=== PATIENT | male | born 1940 | race Caucasian/White ===

== ENCOUNTER 2016-07-10 12:24 | Emergency (ER) | payer OTHER ==
--- NOTE | 2016-07-10 12:43 | EDPHY ---
H & P Time Seen by Provider: 07/10/16 12:41 HPI/ROS: CHIEF COMPLAINT: HISTORY OF PRESENT ILLNESS: [Location, Duration, Severity, Quality, Context, Timing Modifying Factors, Associated S&S] REVIEW OF SYSTEMS: A complete 10-point review of systems was performed and is negative except for those items mentioned in the HPI. Past Medical/Surgical History: Asthma. Smoking Status: Never smoked Physical Exam: General Appearance: Alert, no distress Eyes: Pupils equal and round, no conjunctival pallor or injection ENT, Mouth: Mucous membranes moist Neck: Normal inspection Respiratory: Lungs are clear to auscultation Cardiovascular: Regular rate and rhythm Gastrointestinal: Abdomen is soft and non- tender Neurological: A&O, nonfocal, normal gait Skin: Warm and dry, no rash Extremities: Nontender, no pedal edema Psychiatric: Mood and affect normal Constitutional: Initial Vital Signs Temperature (C) 36.6 C 07/10/16 12:33 Heart Rate 142 H 07/10/16 12:33 Respiratory Rate 18 07/10/16 12:33 Blood Pressure 121/93 H 07/10/16 12:33 O2 Sat (%) 94 07/10/16 12:33 O2 Delivery Mode Room Air Allergies/Adverse Reactions: No Known Allergies Allergy (Unverified 07/10/16 12:31) Home Medications: Medication Instructions Recorded Albuterol 5 mg/ml INH 07/10/16 Report Scribed for: Zully Bridges Report Scribed by: Rocael Del Valle Date of Report: 07/10/16 Time of Report: 12:45 Physician Review and Approval Statement: 07/10/16 12:43 Portions of this note were transcribed by a certified medical technician. I personally performed a history, physical exam, medical decision making, and confirmed accuracy of information the transcribed note.
--- NOTE | 2016-07-10 12:47 | CPEKG ---
Heart Rate: 143 RR Interval: 420 P-R Interval: 288 QRSD Interval: 146 QT Interval: 344 QTC Interval: 531 P [place]: 0 QRS [place]: -150 T Wave [place]: 44 EKG Severity - ABNORMAL ECG - EKG Impression: SINUS TACHYCARDIA EKG Impression: FIRST DEGREE AV BLOCK EKG Impression: LEFT ATRIAL ABNORMALITY EKG Impression: RBBB AND LAFB Electronically Signed By: Shanthi Vega 10-Jul-2016 23:12:35
[2016-07-10] MEDS ORDERED: ADENOSINE 6 MG/2 ML VIAL IVP ONE (12:50)
[2016-07-10] MEDS ORDERED: ASPIRIN 81 MG CHEWABLE TAB PO ONE (12:51)
[2016-07-10] MEDS ORDERED: NS 1,000 ML IV ONE (12:51)
[2016-07-10] MEDS ORDERED: ADENOSINE 6 MG/2 ML VIAL ONE (12:54)
[2016-07-10 13:03] LABS: % IMMATURE GRANULYOCYTES 0.1 % (0.0-1.1); ABSOLUTE IMMATURE GRANULOCYTES 0.01 10^3/uL (0.00-0.10); ADD DIFF? NO; ADD MORPH? NO; ADD SCAN? NO; ATYPICAL LYMPHOCYTE FLAG 20 (0-99); FRAGMENT RBC FLAG 0 (0-99); HEMATOCRIT 47.5 % (40.0-51.0); HEMOGLOBIN 16.2 g/dL (13.7-17.5); LEFT SHIFT FLG 0 (0-99); LIPEMIA HEMOLYSIS FLAG 90 (0-99); MEAN CELL HEMOGLOBIN CONCENTR. 34.1 g/dL (32.4-36.7); MEAN CELL VOLUME 85.1 fL (81.5-99.8); MEAN PLATELET VOLUME 9.2 fL (8.7-11.7); PLATELET CLUMPS FLAG 10 (0-99); PLATELET COUNT 458 10^3/uL (150-400); RED BLOOD CELL COUNT 5.58 10^6/uL (4.40-6.38); RED CELL DISTRIBUTION WIDTH 14.8 % (11.5-15.2)
[2016-07-10 13:07] LABS: ANION GAP 15 mEq/L (8-16); CALCIUM 9.7 mg/dL (8.5-10.4); CARBON DIOXIDE 27 mEq/l (22-31); CHLORIDE 95 mEq/L (97-110); CREATININE 0.8 mg/dL (0.7-1.3); GLOMERULAR FILTRATION RATE > 60; GLUCOSE 121 mg/dL (70-100); MAGNESIUM 2.1 mg/dL (1.6-2.3); POTASSIUM 4.6 mEq/L (3.5-5.2); SODIUM 137 mEq/L (134-144)
[2016-07-10] MEDS ORDERED: PROPOFOL 200 MG/20 ML VIAL ONE (13:07)
[2016-07-10] MEDS ORDERED: fentaNYL 100 MCG/2 ML INJ ONE (13:09)
[2016-07-10] MEDS ORDERED: fentaNYL 100 MCG/2 ML INJ IVP ONE (13:10)
[2016-07-10] MEDS ORDERED: PROPOFOL 200 MG/20 ML VIAL IVP ONE (13:10)
[2016-07-10] MEDS ORDERED: DILTIAZEM 25 MG/5 ML VIAL IVP ONE ×2 (13:14→13:15)
[2016-07-10] MEDS ORDERED: DILTIAZEM 125 MG in D5W 125 ML IV ONE (13:15)
[2016-07-10 13:18] LABS: TROPONIN I 0.033 ng/mL (0-0.034)
[2016-07-10] MEDS ORDERED: DILTIAZEM 125 MG in D5W 100 ML IV ONE (13:30)
--- NOTE | 2016-07-10 13:53 | DX ---
Portable Chest July 10, 2016 1325 hours Clinical Indications: Chest pain. Comparison: October 28, 2010. Findings: Frontal view (only) shows clear lungs and no masses. Heart size and pulmonary vessels melchor ear normal. No evidence of pleural effusion. Persistent elevation of the left hemidiaphragm is uncha nged. Impression: Negative frontal chest radiograph.
[2016-07-10] MEDS ORDERED: AZITHROMYCIN 250 MG TAB PO ONE (13:57)
--- NOTE | 2016-07-10 14:19 | EDPHY ---
H & P Stated Complaint: sick for 2 wks, coughing fit yesterday "heart beat went crazy " thumping Time Seen by Provider: 07/10/16 12:41 - Personal History Current Tetanus/Diphtheria Vaccine: Yes Current Tetanus Diphtheria and Acellular Pertussis (TDAP): Yes - Medical/Surgical History Hx Asthma: Yes Hx Chronic Respiratory Disease: No Hx Diabetes: No Hx Cardiac Disease: No Hx Renal Disease: No Hx Cirrhosis: No Hx Alcoholism: No Hx HIV/AIDS: No Hx Splenectomy or Spleen Trauma: No Other PMH: asthma, - Social History Smoking Status: Never smoked Constitutional: Initial Vital Signs Temperature (C) 36.6 C 07/10/16 12:33 Heart Rate 142 H 07/10/16 12:33 Respiratory Rate 18 07/10/16 12:33 Blood Pressure 121/93 H 07/10/16 12:33 O2 Sat (%) 94 07/10/16 12:33 O2 Delivery Mode Nasal Cannula O2 (L/minute) 3 Allergies/Adverse Reactions: No Known Allergies Allergy (Unverified 07/10/16 12:31) Home Medications: Medication Instructions Recorded AZITHROMYCIN [Z-PACK] 250 mg PO DAILY #1 packet 07/10/16 Albuterol 5 mg/ml INH 07/10/16 Diltiazem HCl [Diltiazem 12Hr ER] 60 mg PO BID #30 cap.er.12h 07/10/16 HYDROcodone/HOMATROPINE HYCODA 1 tsp PO Q4-6PRN PRN #120 ml 07/10/16 [Hycodan Syrup (RX)] Medical Decision Making ED Course/Re-evaluation: CHIEF COMPLAINT: Rapid heart rate HISTORY OF PRESENT ILLNESS: 76-year-old healthy gentleman who denies any medical problems or any medicines. He has had an upper respiratory infection for about 2 weeks. He has had severe coughing episodes. During a severe coughing episode yesterday at 10:00 p.m. exactly this patient went into a rapid heart rhythm. Thought it might go away so he slept overnight and then went to urgent care this morning the analyze his heart rhythm and sent him here. He also uses some albuterol intermittently which was given to him for his upper respiratory infection. He denies ever having a rapid rhythm in the past. He denies syncope. He feels a little short of breath. His chest feels funny to him but he denies any pressure or tightness or pain in the chest shoulders arms neck or jaw. REVIEW OF SYSTEMS: A 10 point review of systems was performed and is negative with the exception of the elements mentioned in the history of present illness. PHYSICAL EXAM: HR, BP, O2 Sat, RR. Temp noted General Appearance: Alert, well hydrated, appropriate, and non-toxic appearing. Head: Atraumatic without scalp tenderness or obvious injury Eyes: Pupils equal, round, reactive to light and accommodation, EOMI, no trauma , no injection. Ears: Clear bilaterally, no perforation, normal landmarks Nose: Atraumatic, no rhinorrhea, clear. Throat: There is no erythema or exudates, no lesions, normal tonsils, mucus membranes moist. Neck: Supple, 2+ carotid upstroke, nontender, no lymphadenopathy. Respiratory: No retractions, no distress, no wheezes, and no accessory muscle use. Lungs are clear to auscultation bilaterally. Cardiovascular: Rapid and Regular rate and rhythm, no murmurs, rubs, or gallops. Bilateral carotid, radial, dorsalis pedis, and posterior tibial pulses intact. Good capillary refill all extremities. Gastrointestinal: Abdomen is soft, nontender, non-distended, no masses, no rebound, no guarding, no peritoneal signs. Musculoskeletal: Normal active ROM of all extremities, atraumatic. Neurological: Alert, appropriate, and interactive. The patient has normal DTRs and non-focal cranial nerves, motor, sensory, and cerebellar exam. Skin: No rashes, good turgor, no nodules on palpation. Past medical history: Patient denies Past surgical history: Noncontributory Family history: Noncontributory Social history: , lives at home, does not abuse tobacco drugs or alcohol , retired DIAGNOSTICS/PROCEDURES/CRITICAL CARE TIME: The 12 lead EKG was interpreted by myself. See hard copy and/or "tracemaster" electronic copy for interpretation. The 1st EKG shows a right bundle-branch block pattern and a regular rate of 145-150. The rhythm strip after the adenosine disclosed flutter waves and did not convert the patient. The 1st rhythm strip after 50 joule cardioversion converted the patient to sinus mechanism originally then the patient went back into a flutter pattern. The 2nd rhythm strip after 100 joule cardioversion shows sinus mechanism with no ischemia. Rate of 65. Study: PA and Lateral Chest X-ray Indication: cough x2 week Results: After viewing the images myself on the PACS system. My interpretation of the images is: no acute process. The radiologist interpretation is pending at the time of this dictation. DIFFERENTIAL DIAGNOSIS: The differential diagnosis for the patient's narrow complex tachycardia included but was not limited to various causes of sinus tachycardia such as dehydration and medicines, SVT, atrial flutter, atrial fibrillation, pulmonary causes. MEDICAL DECISION MAKING: This patient is using albuterol in also has an upper respiratory infection. During a coughing event yesterday evening at 10:00 p.m. exactly went into a rapid rhythm. The rhythm lasted all night. I boo labs 1st thing on arrival today and his troponin is normal. There is no evidence of ischemia on EKG or based on troponin. After identifying the fact that the patient had atrial flutter when given adenosine I moved to the [facility]uma [facility] for cardioversion. Procedure: Procedural sedation. Indication: cardioversion. A pre-sedation evaluation was completed on the patient at 1:00 p.m.. The patient has an ASA class 1 airway and modified Mallampati class 1 airway. Patient is an appropriate candidate for procedural sedation. The risks, benefits, alternatives of sedation were discussed with the patient and his . Consent was obtained. The patient was pre-oxygenated with 100% O2 on a [id number] and moved to the procedure room where airway rescue equipment is available. A time out was observed. The patient was sedated with 50 mcg of fentanyl and 80 mg of propofol. The patient was monitored with continuous pulse oximetry, alarm security or surveillance monitor, and end tidal CO2. There were no complications and no hypoxemia. The patient tolerated the procedure well and returned to baseline. I remained at the bedside for the sedation. The total time I spent in the procedural sedation was 15 minutes. Procedure: Electrical Cardioversion. Indication: Atrial flutter. Risks, benefits, alternatives discussed with the patient and consent obtained. The patient was on a continuous manager monitoring, with airway equipment at the bedside. The patient was on continuous pulse oximetry and passive CO2 monitor. The cardioversion was performed with 50 joules biphasic current, followed by 100 joules biphasic current. The cardioversion was successful after the 2nd attempt. The patient tolerated the procedure well with no complications. The procedure was performed by myself. ECHOCARDIOGRAPHY: Indication: new onset atrial flutter Procedure: Limited transthoracic 2D echocardiogram. A limited transthoracic echocardiogram was performed by the echocardiogram technologists and interpreted by Surekha Ring. Limited transthoracic echocardiogram: The pericardium was visualized and found to be negative for pericardial fluid. Cardiac activity and EF was normal. No obvious structural or valve abnormalities. Impression: normal Since this patient was easily converted from atrial flutter and the atrial flutter was most definitely brought on by upper respiratory event I will 1st treat this patient's upper respiratory infection with Zithromax and hydrocodone to suppress his cough. In addition I did give the patient 20 mg of IV diltiazem after the 100 joule cardioversion and his rate is sinus 65. Dr. Surekha Ring is here in the trauma [facility] and has done consultation on the patient in addition to reading the echo. She is in agreement that it is safe for this patient to proceed home at this time he will return if his rhythm becomes rapid again. Will start this patient on 60 mg of extended release diltiazem 1 twice daily until his upper respiratory infection is gone. He will follow up with Dr. Ring or Dr. Martinez who he has seen about 5 years ago in the office on Thursday or Thursday. He will return here if worse. Dr. Ring and I did give the patient the option of stain but he would much prefer to go home he lives close and if he goes into a rapid rhythm again he will come back. This patient has been offered Eliquis by Dr. Ring but the patient would like to hold off now will talk further to Dr. Ring or Dr. Martinez this week. I spent a total of 30 minutes of critical care time including but not limited to obtaining history, performing a physical exam, ordering interventions and the bedside monitoring of those interventions, collecting and interpreting tests and discussion with consultants but not including time spent performing procedures. This is independent of PA or ELECTRONIC GLUING MACHINE OPERATOR time spent with the patient. - Data Points Laboratory Results: Laboratory Results 07/10/16 12:48 07/10/16 12:48 07/10/16 07/10/16 07/10/16 12:58 12:48 12:35 WBC 8.85 10^3/uL (3.80-9.50) RBC 5.58 10^6/uL (4.40-6.38) Hgb 16.2 g/dL (13.7-17.5) Hct 47.5 % (40.0-51.0) MCV 85.1 fL (81.5-99.8) MCH 29.0 pg (27.9-34.1) MCHC 34.1 g/dL (32.4-36.7) RDW 14.8 % (11.5-15.2) Plt Count 458 H 10^3/uL (150-400) MPV 9.2 fL (8.7-11.7) Neut % (Auto) 73.5 % (39.3-74.2) Lymph % (Auto) 19.1 % (15.0-45.0) King % (Auto) 7.0 % (4.5-13.0) Eos % (Auto) 0.1 L % (0.6-7.6) Baso % (Auto) 0.2 L % (0.3-1.7) Nucleat RBC Rel Count 0.0 % (0.0-0.2) Absolute Neuts (auto) 6.50 10^3/uL (1.70-6.50) Absolute Lymphs (auto) 1.69 10^3/uL (1.00-3.00) Absolute Monos (auto) 0.62 10^3/uL (0.30-0.80) Absolute Eos (auto) 0.01 L 10^3/uL (0.03-0.40) Absolute Basos (auto) 0.02 10^3/uL (0.02-0.10) Absolute Nucleated RBC 0.00 10^3/uL (0-0.01) Immature Gran % 0.1 % (0.0-1.1) Immature Gran # 0.01 10^3/uL (0.00-0.10) D-Dimer 0.64 H ug/mLFEU (0.00-0.50) Sodium 137 mEq/L (134-144) Potassium 4.6 mEq/L (3.5-5.2) Chloride 95 L mEq/L (97-110) Carbon Dioxide 27 mEq/l (22-31) Anion Gap 15 mEq/L (8-16) BUN 15 mg/dL (7-23) Creatinine 0.8 mg/dL (0.7-1.3) Estimated GFR > 60 Glucose 121 H mg/dL (70-100) Calcium 9.7 mg/dL (8.5-10.4) Magnesium 2.1 mg/dL (1.6-2.3) Troponin I 0.033 ng/mL (0-0.034) NT-Pro-B Natriuret Pep 1520 H pg/mL (0-125) TSH Pending Medications Given: Discontinued Medications Adenosine (Adenosine) 12 mg IVP EDNOW ONE Stop: 07/10/16 12:51 Last Admin: 07/10/16 12:50 Dose: 12 mg Aspirin (Aspirin) 324 mg PO EDNOW ONE Stop: 07/10/16 12:52 Last Admin: 07/10/16 13:22 Dose: 324 mg Azithromycin (Zithromax) 500 mg PO EDNOW ONE PRN Reason: Protocol Stop: 07/10/16 13:58 Last Admin: 07/10/16 14:25 Dose: 500 mg Diltiazem HCl (Cardizem 25 Mg/5 Ml Vial) 20 mg IVP EDNOW ONE Stop: 07/10/16 13:16 Last Admin: 07/10/16 13:15 Dose: 20 mg Fentanyl (Sublimaze) 50 mcg IVP EDNOW ONE Stop: 07/10/16 13:11 Last Admin: 07/10/16 13:10 Dose: 50 mcg Sodium Chloride (Ns) 1,000 mls @ 0 mls/hr IV ONCE ONE PRN Reason: Wide Open Stop: 07/10/16 12:52 Last Admin: 07/10/16 13:05 Dose: 1,000 mls Propofol (Diprivan) 80 mg IVP EDNOW ONE Stop: 07/10/16 13:11 Last Admin: 07/10/16 13:10 Dose: 80 mg Departure - Departure Disposition: Home, Routine, Self-Care Clinical Impression: Atrial flutter with rapid ventricular response, Bronchitis Condition: Good Instructions: Atrial Flutter (ED), Acute Bronchitis (ED) Referrals: Dave Tse [Primary Care Provider] - As per Instructions Surekha Ring MD [Medical Doctor] - As per Instructions Prescriptions: Diltiazem HCl [Diltiazem 12Hr ER] 60 mg PO BID #30 cap.er.12h HYDROcodone/HOMATROPINE HYCODA [Hycodan Syrup (RX)] 1 tsp PO Q4-6PRN PRN #120 ml PRN Reason: Cough, Moderate AZITHROMYCIN [Z-PACK] 250 mg PO DAILY #1 packet
[2016-07-10 14:28] VITALS: O2SAT 97
--- NOTE | 2016-07-10 14:53 | ECHO ---
[id number] + + [address] : : [place] [address] : : [phone] + + Adult Echocardiographic Report + ----+ :Name: CLARI DIAMOND LStudy Date: 07/10/2016 01:52 PM : : Hospital Admission Number: [id number] Location : ER: :: 1940 Gender: Male Height: 68 in : :Age: 76 yrs Race: WH Weight: 172 lb : :Reason For Study: Eval LV Fx : : BSA: 1.9 meters2 : :History: Post Atrial Flutter Cardioversion : + ----+ MMode/2D Measurements & Calculations IVSd: 0.91 cm LVIDd: 4.9 cm FS: 41.1 % Ao root diam: 3.4 cm LVPWd: 0.93 cm LVIDs: 2.9 cm EDV(Teich): 113.4 ml ACS: 1.6 cm ESV(Teich): 31.9 ml EF(Teich): 71.8 % Normal Measurement Values: + + :LVIDd (3.5-5.7cm) IVSd (0.6-1.1cm) LVPWd (0.6-1.1cm) Aortic Root (2.0-3.7cm)Left Atrium (1.5-4.0cm): :LV Vol(d) (76-115ml) LV Vol(s) (29-48ml) Ejec Fraction (50-65%)PV Alan (0.6- 1.2m/s) TV Alan (0.4-1.0m/s) : :MV E Alan (0.8-1.0m/s)MV A Alan (0.3-1.0m/s)LVOT Alan (0.7-1.2m/s) Asc Ao Alan ( 0.9-1.8m/s) : + + Doppler Measurements & Calculations MV E max alan: Ao V2 max: LV V1 max: PA V2 max: 58.2 cm/sec 113.0 cm/sec 87.9 cm/sec 66.5 cm/sec MV A max alan: Ao max P.1 mmHgLV V1 max PG: PA max P.4 cm/sec 3.1 mmHg 1.8 mmHg MV E/A: 1.4 TR max alan: 246.0 cm/sec TR max P.2 mmHg RAP systole: 5.0 mmHg RVSP(TR): 29.2 mmHg Left Ventricle The left ventricle is normal in size. There is normal left ventricular wall thickness. The left ventricular ejection fraction is normal. There is Doppler evidence for diastolic dysfunction. Ejection Fraction = 72%. The left ventricular wall motion is normal. Right Ventricle The right ventricle is normal in size and function. Atria The left atrial size is normal. Right atrial size is normal. Mitral Valve There is mild mitral annular calcification. There is no evidence of mitral valve prolapse. There is no mitral valve stenosis. There is trace to mild mitral regurgitation. Tricuspid Valve There is mild tricuspid regurgitation. Right ventricular systolic pressure is normal. Aortic Valve Mild Aortic Valve Calcification. The aortic valve is trileaflet. There is no aortic stenosis. Trace aortic regurgitation. Pulmonic Valve trace to mild pulmonic valvular regurgitation. Great Vessels The aortic root is normal size. Pericardium/Pleural There is no pericardial effusion. Conclusion A complete two-dimensional transthoracic echocardiogram was performed (2D, M-mode, Doppler and color flow Doppler). The left ventricular ejection fraction is normal. There is Doppler evidence for diastolic dysfunction. Ejection Fraction = 72%. The left ventricular wall motion is normal. The right ventricle is normal in size and function. The left atrial size is normal. There is mild mitral annular calcification. There is trace to mild mitral regurgitation. There is mild tricuspid regurgitation. Right ventricular systolic pressure is normal. Mild Aortic Valve Calcification There is no aortic stenosis. Trace aortic regurgitation. The aortic valve is trileaflet. trace to mild pulmonic valvular regurgitation. There is no pericardial effusion. No prior echo Final Reading Physician: Dr Surekha Ring electronically signed on 07/10/2016 02:52 PM Ordering Physician: Klever Hamilton Performed By: Landon Da Silva, GRACIELACS
[2016-07-10 15:03] VITALS: BP 103/59; PULSE 73; RESP 20; TEMP 98.1
--- NOTE | 2016-07-10 15:29 | GCON ---
[f rep st] CONSULTATION CARDIOLOGY CONSULT DATE OF CONSULTATION: 07/10/2016 PRIMARY LEATHER CARVER: Dr. Martir Martinez. CHIEF COMPLAINT: Atrial flutter. HISTORY OF PRESENT ILLNESS: We were asked by Dr. Hamilton in the ER to visit with Mr. Duarte. The pat kimberley is a pleasant 76-year-old male with no known cardiovascular history. He does have a history of reactive airways disease. He reports having had an angiogram with Dr. Martinez about 10 years ago with no intervention. I do not have this report. For a couple of weeks, he has been struggling with upper respiratory symptoms, including paroxysmal c ough. Last night, he was coughing very hard; and after his coughing spell was over, he felt that his heart was not beating right. His pulse felt weak and rapid. He felt generally unwell and a little bit lightheaded. There was some associated chest burning and some mild dyspnea. He also used his al buterol over the course of the past couple of days. Because he was not feeling right, he presented to [facility] and was referred to the Kody Rodriguez, when he was found to be in rapid narrow complex tachycardia. In the emergency department, he was found to have a right bundle branch block and SVT. He was given adenosine, which revealed flutter wa ves, and then received 2 synchronized shocks which ultimately converted him to normal rhythm. Upon my evaluation post cardioversion by Dr. Hamilton, he feels much better. Chest burning is gone. REVIEW OF SYSTEMS: A full 10-point review of systems is performed and is otherwise negative except t hat which is outlined in the History of Present Illness. ALLERGIES: No known drug allergies. PAST MEDICAL HISTORY: 1. Reactive airways disease. 2. Cataract surgery. 3. Tonsillectomy as a child. MEDICATIONS: Albuterol inhaler, aspirin 81 mg daily, vitamin C, vitamin B, and multivitamin. SOCIAL HISTORY: The patient is and his is at the bedside. He drinks alcohol in moderat ion. He does not smoke cigarettes. He denies cocaine. FAMILY HISTORY: Negative for premature coronary disease or sudden cardiac . PHYSICAL EXAM: VITAL SIGNS: Blood pressure 90/61, heart rate 69, oxygen saturation 97% on 3 L nasal cannula. He is afebrile. GENERAL: Well-appearing older male in no acute distress. HEENT: Sclera e are clear and free of jaundice. Mucous membranes are moist. Normocephalic, atraumatic. CARDIOVAS CULAR: JVP is less than 10. Carotids equal and 2+ bilaterally without bruit. Regular rate and rhyt hm without murmur, rub, or gallop. LUNGS: Clear to auscultation bilaterally without wheezes, rhonch i, or rales. ABDOMEN: Soft, nontender, and nondistended without bruits, masses, or hepatosplenomega ly. EXTREMITIES: Warm and well perfused without cyanosis, clubbing, or edema. NEURO: Alert and or iented x3 without gross focal neurological deficits. LABORATORY DATA: White count 8.85, hematocrit 47.5, platelets slightly high at 458. D-dimer 0.64. Sodium 137, potassium 4.6, chloride 95, bicarb 27, BUN 15, creatinine 0.8, glucose 121. Troponin is negative. BNP 1520 and TSH is pending. 12-lead EKG, reviewed by me: Initial shows SVT with right bundle branch block. Ventricular rate 143 beats per minute. Left anterior fascicular block. 12-lead EKG post conversion shows sinus rhythm w ith a right bundle branch block. Chest x-ray, reviewed by me, is normal. Echocardiogram, reviewed by me: Normal biventricular size and systolic function. Mild mitral regurg itation. Mild tricuspid regurgitation with normal estimated pulmonary pressures. Normal LV wall mot ion. ASSESSMENT AND PLAN: A 76-year-old male with new onset atrial flutter, likely triggered by his upper respiratory infection and the use of albuterol. He is now in sinus rhythm after adenosine, diltiaze m, and 2 direct current cardioversions. 1. Atrial flutter: Currently in sinus rhythm. I have recommended diltiazem 60 mg twice daily to re duce the risk of recurrent arrhythmia while he is recovering from his upper respiratory infection. D iscussed the risk and benefit of short-term anticoagulation. His CHADS2-VASc score is 1, but he just did have cardioversion and I do recommend 4 weeks of Eliquis. Bleeding risks were reviewed. Possib le side effects of diltiazem were also reviewed. He should follow up in our office with either Dr. Michael kirby or me for discussion about whether he needs to be on long-term anticoagulation as well as an ou tpatient stress test. Follow up on TSH. 2. History of asthma and upper respiratory infection: This appears to be bronchitis. No pneumonia on chest x-ray. Azithromycin per Dr. Hamilton. Thank you for allowing us to participate in Mr. Duarte's care. We will follow up with him as an outpa tient as discussed above. /[id number]/MODL
== END 2016-07-10 15:04 | disposition home or self-care (01) ==
DX: I48.92 Unspecified atrial flutter (principal); J20.9 Acute bronchitis, unspecified; J45.909 Unspecified asthma, uncomplicated
CPT/HCPCS: 96374; J0153; J2704; J3010

== ENCOUNTER 2016-07-13 22:11 | Observation (INO) | payer OTHER ==
--- NOTE | 2016-07-13 22:32 | CPEKG ---
Heart Rate: 128 RR Interval: 469 QRSD Interval: 144 QT Interval: 360 QTC Interval: 526 QRS [place]: 121 T Wave [place]: 7 EKG Severity - ABNORMAL ECG - EKG Impression: ATRIAL FIBRILLATION, V-RATE 89-156 EKG Impression: MULTIFORM VENTRICULAR PREMATURE COMPLEXES EKG Impression: RIGHT BUNDLE BRANCH BLOCK Electronically Signed By: Jean-Pierre Conn 14-Jul-2016 04:14:35
--- NOTE | 2016-07-13 22:33 | EDPHY ---
H & P Stated Complaint: rapid hr for 1 hr dizzy seen last week new onset afib HPI/ROS: HPI CHIEF COMPLAINT: Lightheadedness, fatigue, rapid heart rate HISTORY OF PRESENT ILLNESS: This patient very pleasant 76-year-old male, no significant medical history, presents emergency room with feeling lightheadedness, feeling as if he is going to pass out, fatigue, rapid heart rate. Patient states around 930 this evening he noticed that his heart was racing and beating very fast, tells me that he got very lightheaded he thought that his heart rate was very irregular he went and sat down in a chair to see if this would go away for 20 minutes and took his dose of diltiazem that was recently prescribed Grime. His symptoms continued to he decided come to the emergency room. He denies chest pain, shortness of breath. He was recently here in the emergency room had a cardioversion this was on July 10 he was recently diagnosed with upper respiratory tract infection and was taking albuterol it was thought that his a flutter at that time on July 10 was due to upper respiratory tract infection coughing and albuterol. Patient tells me he has not followed up with a logging assistant. He has been compliant with azithromycin for the upper respiratory tract infection he has been taking diltiazem he is not on any blood thinners. Upon arrival here in emergency room he denies any chest pain he is complaining of lightheadedness, palpitations. It is noted his heart rate is in the 130s to 140 very irregular. He otherwise appears well nontoxic. Past Medical History: Recently diagnosed with a flutter status post cardioversion on July 10 Past Surgical History: denies any significant surgical history Social History: Denies daily use drugs alcohol tobacco products Family History: in noncontributory ROS REVIEW OF SYSTEMS: A comprehensive 10 point review of systems is otherwise negative aside from elements mentioned in the history of present illness. Exam Constitutional triage nursing summary reviewed, vital signs reviewed, awake/ alert. Eyes normal conjunctivae and sclera, EOMI, PERRLA. HENT normal inspection, atraumatic, moist mucus membranes, no epistaxis, neck supple/ no meningismus, no raccoon eyes. Respiratory clear to auscultation bilaterally, normal breath sounds, no respiratory distress, no wheezing. Cardiovascular irregular, irregular rhythm , no murmur, no edema, distal pulses normal. Gastrointestinal soft, non-tender, no rebound, no guarding, normal bowel sounds, no distension, no pulsatile mass. Genitourinary no CVA tenderness. Musculoskeletal no midline vertebral tenderness, full range of motion, no calf swelling, no tenderness of extremities, no meningismus, good pulses, neurovascularly intact. Skin pink, warm, & dry, no rash, skin atraumatic. Neurologic awake, alert and oriented x 3, AAOx3, moves all 4 extremities equally, motor intact, sensory intact, CN II-XII intact, normal cerebellar, normal vision, normal speech. Psychiatric normal mood/affect. Heme/Lymph/Immune no lymphadenopathy. Differential Diagnosis: this includes but is not limited to in a particular order, AFib with RVR, electrolyte abnormality, ACS, dehydration, upper respiratory tract infection, pneumonia Medical Decision Making: This patient had an IV established will receive IV fluid bolus, he will need EKG, chest x-ray, blood work including troponin and electrolytes. He is in AFib I will order him 10 mg IV dilt push not push and dilt gtt. We will re-evaluate. Re-evaluation: EKG interpretation by me on record in [employer] system. Impression time of EKG is 08/25/1929, this is atrial fib rate of 128 there is a right bundle-branch block present. this is similar to his previous EKG dated on 07/10/2016 ED x-ray chest one view: Negative for acute cardiopulmonary disease however there is underlying bronchitis, large left gastric bubble otherwise unremarkable. Image interpreted by myself. EKG interpretation by me on record in [employer] system. Impression time of EKG is 09/22/2016, this is AFib rate of 103, there is right bundle-branch block present. 1225: re-examination at this time this patient is resting comfortably no chest pain. It is noted he is in AFib heart rate is running 90s to low 100s. Patient is on diltiazem drip at 15 mg. Did come down from the 130s however remains in AFib due to him being symptomatic I will admit him to the hospital for observation and for Cardiology to evaluate him. He agrees with this plan. I have consult the hospitalist service at this time. 1231: spoke with the hospitalist service Dr. Naik who agrees for admission. Patient be admitted to the [facility] Source: Patient - Personal History Current Tetanus/Diphtheria Vaccine: Unsure Current Tetanus Diphtheria and Acellular Pertussis (TDAP): Unsure - Medical/Surgical History Hx Asthma: Yes Hx Chronic Respiratory Disease: No Hx Diabetes: No Hx Cardiac Disease: No Hx Renal Disease: No Hx Cirrhosis: No Hx Alcoholism: No Hx HIV/AIDS: No Hx Splenectomy or Spleen Trauma: No Other PMH: asthma, - Social History Smoking Status: Never smoked Constitutional: Initial Vital Signs Temperature (C) 36.7 C 07/13/16 22:17 Heart Rate 104 H 07/13/16 22:17 Respiratory Rate 18 07/13/16 22:17 Blood Pressure 100/74 07/13/16 22:17 O2 Sat (%) 97 07/13/16 22:17 O2 Delivery Mode Room Air Allergies/Adverse Reactions: No Known Allergies Allergy (Unverified 07/10/16 12:31) Home Medications: Medication Instructions Recorded AZITHROMYCIN [Z-PACK] 250 mg PO DAILY #1 packet 07/10/16 Albuterol 5 mg/ml INH 07/10/16 Diltiazem HCl [Diltiazem 12Hr ER] 60 mg PO BID #30 cap.er.12h 07/10/16 Medical Decision Making - Data Points Laboratory Results: Laboratory Results 07/13/16 22:29 07/13/16 22:29 07/13/16 22:29 WBC 8.00 10^3/uL (3.80-9.50) RBC 4.66 10^6/uL (4.40-6.38) Hgb 13.5 L g/dL (13.7-17.5) Hct 39.1 L % (40.0-51.0) MCV 83.9 fL (81.5-99.8) MCH 29.0 pg (27.9-34.1) MCHC 34.5 g/dL (32.4-36.7) RDW 14.6 % (11.5-15.2) Plt Count 426 H 10^3/uL (150-400) MPV 9.2 fL (8.7-11.7) Neut % (Auto) 59.3 % (39.3-74.2) Lymph % (Auto) 29.1 % (15.0-45.0) [place] % (Auto) 9.5 % (4.5-13.0) Eos % (Auto) 1.3 % (0.6-7.6) Baso % (Auto) 0.4 % (0.3-1.7) Nucleat RBC Rel Count 0.0 % (0.0-0.2) Absolute Neuts (auto) 4.75 10^3/uL (1.70-6.50) Absolute Lymphs (auto) 2.33 10^3/uL (1.00-3.00) Absolute Monos (auto) 0.76 10^3/uL (0.30-0.80) Absolute Eos (auto) 0.10 10^3/uL (0.03-0.40) Absolute Basos (auto) 0.03 10^3/uL (0.02-0.10) Absolute Nucleated RBC 0.00 10^3/uL (0-0.01) Immature Gran % 0.4 % (0.0-1.1) Immature Gran # 0.03 10^3/uL (0.00-0.10) PT 13.3 SEC (12.0-15.0) INR 1.02 (0.83-1.16) APTT 28.6 SEC (23.0-38.0) Sodium 140 mEq/L (134-144) Potassium 3.9 mEq/L (3.5-5.2) Chloride 99 mEq/L (97-110) Carbon Dioxide 25 mEq/l (22-31) Anion Gap 16 mEq/L (8-16) BUN 18 mg/dL (7-23) Creatinine 0.9 mg/dL (0.7-1.3) Estimated GFR > 60 Glucose 109 H mg/dL (70-100) Calcium 9.7 mg/dL (8.5-10.4) Magnesium 2.2 mg/dL (1.6-2.3) Total Bilirubin 1.2 mg/dL (0.1-1.4) Conjugated Bilirubin 0.3 mg/dL (0.0-0.5) Unconjugated Bilirubin 0.9 mg/dL (0.0-1.1) AST 69 H IU/L (17-59) ALT 44 IU/L (21-72) Alkaline Phosphatase 74 IU/L (38-126) Creatine Kinase 706 H IU/L (0-224) CK-MB (CK-2) Fraction 5.59 H ng/mL (0-3.19) CK-MB (CK-2) % 0.8 % (0.0-4.0) Creatine Kinase Interp NEGATIVE (NEGATIVE) Troponin I 0.016 ng/mL (0-0.034) NT-Pro-B Natriuret Pep 263 H pg/mL (0-125) Total Protein 7.3 g/dL (6.3-8.2) Albumin 4.1 g/dL (3.5-5.0) Lipase 190.0 IU/L (23-300) Medications Given: Discontinued Medications Diltiazem HCl (Cardizem 25 Mg/5 Ml Vial) 10 mg IVP EDNOW ONE Stop: 07/13/16 22:49 Last Admin: 07/13/16 23:04 Dose: 10 mg Sodium Chloride (Ns) 1,000 mls @ 0 mls/hr IV ONCE ONE PRN Reason: As Directed Stop: 07/13/16 22:36 Last Admin: 07/13/16 22:44 Dose: 1,000 mls Diltiazem HCl 125 mg/ Dextrose 150 mls @ 0 mls/hr IV EDNOW ONE; As Directed PRN Reason: Protocol Stop: 07/13/16 22:49 Last Admin: 07/13/16 23:15 Dose: 150 mls Departure - Departure Disposition: [facility] In[facility] Acute Clinical Impression: Atrial fibrillation Condition: Fair Referrals: Dave Tse [Primary Care Provider] - As per Instructions
[2016-07-13] MEDS ORDERED: NS 1,000 ML IV ONE (22:35)
[2016-07-13] MEDS ORDERED: DILTIAZEM 125 MG in D5W 125 ML IV ONE (22:48)
[2016-07-13] MEDS ORDERED: DILTIAZEM 25 MG/5 ML VIAL IVP ONE (22:48)
[2016-07-13 22:54] LABS: % IMMATURE GRANULYOCYTES 0.4 % (0.0-1.1); ABSOLUTE IMMATURE GRANULOCYTES 0.03 10^3/uL (0.00-0.10); ADD DIFF? NO; ADD MORPH? NO; ADD SCAN? NO; ATYPICAL LYMPHOCYTE FLAG 10 (0-99); FRAGMENT RBC FLAG 0 (0-99); HEMATOCRIT 39.1 % (40.0-51.0); HEMOGLOBIN 13.5 g/dL (13.7-17.5); LEFT SHIFT FLG 0 (0-99); LIPEMIA HEMOLYSIS FLAG 90 (0-99); MEAN CELL HEMOGLOBIN CONCENTR. 34.5 g/dL (32.4-36.7); MEAN CELL VOLUME 83.9 fL (81.5-99.8); MEAN PLATELET VOLUME 9.2 fL (8.7-11.7); PLATELET CLUMPS FLAG 10 (0-99); PLATELET COUNT 426 10^3/uL (150-400); RED BLOOD CELL COUNT 4.66 10^6/uL (4.40-6.38); RED CELL DISTRIBUTION WIDTH 14.6 % (11.5-15.2)
--- NOTE | 2016-07-13 23:05 | DX ---
Portable Chest, Single View July 13, 2016 Indication: Chest pain Comparison: Portable chest dated July 10, 2016 Findings: Lungs are clear with unchanged diffuse mild peribronchial thickening. Asymmetric elevation left hemidiaphragm is unchanged. Heart size is upper normal. No edema, pneumothorax, consolidation or effusion. Impression: Negative except for chronic mild bronchitis.
[2016-07-13 23:09] LABS: APTT 28.6 SEC (23.0-38.0); INR 1.02 (0.83-1.16); PROTIME(PATIENT) 13.3 SEC (12.0-15.0)
[2016-07-13 23:13] LABS: ALANINE AMINOTRANSFERASE 44 IU/L (21-72); ALBUMIN 4.1 g/dL (3.5-5.0); ALKALINE PHOSPHATASE 74 IU/L (38-126); ANION GAP 16 mEq/L (8-16); ASPARTATE AMINOTRANSFERASE 69 IU/L (17-59); BILIRUBIN,TOTAL 1.2 mg/dL (0.1-1.4); BILIRUBIN-CONJUGATED 0.3 mg/dL (0.0-0.5); BILIRUBIN-UNCONJUGATED 0.9 mg/dL (0.0-1.1); CALCIUM 9.7 mg/dL (8.5-10.4); CARBON DIOXIDE 25 mEq/l (22-31); CHLORIDE 99 mEq/L (97-110); CREATININE 0.9 mg/dL (0.7-1.3); GLOMERULAR FILTRATION RATE > 60; GLUCOSE 109 mg/dL (70-100); MAGNESIUM 2.2 mg/dL (1.6-2.3); POTASSIUM 3.9 mEq/L (3.5-5.2); SODIUM 140 mEq/L (134-144); TOTAL PROTEIN 7.3 g/dL (6.3-8.2)
--- NOTE | 2016-07-13 23:18 | CPEKG ---
Heart Rate: 103 RR Interval: 583 QRSD Interval: 148 QT Interval: 396 QTC Interval: 519 QRS [place]: 100 T Wave [place]: 7 EKG Severity - ABNORMAL ECG - EKG Impression: ATRIAL FIBRILLATION EKG Impression: RIGHT BUNDLE BRANCH BLOCK Electronically Signed By: Jean-Pierre Conn 14-Jul-2016 04:14:35
[2016-07-13 23:25] LABS: CK-MB INTERPRETATION NEGATIVE (NEGATIVE); TROPONIN I 0.016 ng/mL (0-0.034)
[2016-07-13 23:26] LABS: CREATINE KINASE-MB FRACTION 5.59 ng/mL (0-3.19)
[2016-07-14] MEDS ORDERED: ASPIRIN EC 325 MG TAB PO ONE (00:26)
[2016-07-14] MEDS ORDERED: ENOXAPARIN 80 MG/0.8 ML SYR SC ONE ×2 (00:26→01:00)
[2016-07-14] MEDS ORDERED: ONDANSETRON 4 MG/2 ML VIAL IVP PRN (00:39)
[2016-07-14] MEDS ORDERED: ACETAMINOPHEN 325 MG TAB PO PRN (00:39)
[2016-07-14] MEDS ORDERED: ONDANSETRON DISINTEGRATING 4 MG TAB PO PRN (00:39)
[2016-07-14] MEDS ORDERED: NS W/ 20 KCl/L 1,000 ML IV SCH (00:45)
[2016-07-14] MEDS ORDERED: guaiFENesin/CODEINE PHOS 10 ML UDCUP PO PRN (01:08)
--- NOTE | 2016-07-14 01:13 | PDGENHP ---
History and Physical - Chief Complaint Acute palpitation - History of Present Illness PCP: Dr. Tse Primary basic acoustic analyst Dr. Martinez HPI: 76-year-old male presents with acute palpitations characterized as heart racing with associated lightheadedness exacerbated with standing and ambulating , onset of symptoms approximately 9:15 p.m. on the day of presentation with persistent duration thereafter. Patient reports that after he received DC cardioversion on 07/10/2016 in our emergency department, he returned home and did not fill his script for oral diltiazem until the day and half later. Prior to filling his script, the patient reports that he just generally felt unwell with increased fatigue exacerbated by exertion. He would check his heart rate, and he reported that it was in the 80s but he is unclear as to whether it was regular or irregular. He then fill his script for diltiazem 60 mg twice daily on 07/12/16 a.m. and he has taken 4 doses of this medication prior to this presentation. He reports that he was not provided with any recommendation for systemic anticoagulation, and he has been taking aspirin 81 mg daily. He has been utilizing as needed codeine/guaifenesin for cough, as well as azithromycin prescribed on 07/10. He has not been using any albuterol. He reports that overall, his cough symptoms have improved. History Information - Allergies/Home Medication List Allergies/Adverse Reactions: No Known Allergies Allergy (Unverified 07/10/16 12:31) Home Medications: Albuterol 5 mg/ml INH 07/10/16 [Last Taken Unknown] I have personally reviewed and updated: family history, medical history, social history, surgical history - Past Medical History asthma (Diagnosis by Dr. Holguin, never intubated) Additional medical history: Atrial flutter diagnosed on 07/10/2016 in the setting of albuterol usage for acute reactive airway exacerbation, received DC cardioversion and no subsequent systemic anticoagulation - Surgical History Additional surgical history: Cataract surgery, tonsillectomy - Family History Additional family history: No family history of coronary artery disease or sudden cardiac - Social History Smoking Status: Never smoked Alcohol Use: Occasionally Drug Use: None Additional social history: Normally independent in his ADLs, physically active Review of Systems ROS: 10pt was reviewed & negative except for what was stated in HPI & below Constitutional: Reports: other (Fatigue) Cardiac: Reports: lightheadedness, palpitations Physical Exam Temp Pulse Resp BP Pulse Ox 36.7 C 88 16 108/82 H 95 07/13/16 22:17 07/14/16 01:03 07/14/16 01:03 07/14/16 01:03 07/14/16 01:03 Constitutional: no apparent distress, appears nourished, not in pain Eyes: anicteric sclera, EOMI, other (Right pupil greater in diameter than left pupil, chronic) Ears, Nose, Mouth, Throat: moist mucous membranes, hearing normal, ears appear normal, no oral mucosal ulcers Cardiovascular: irregularly irregular, tachycardia, No systolic murmur, No edema Respiratory: no respiratory distress, no rales or rhonchi, clear to auscultation , No expiratory wheeze, No bronchial breath sounds Gastrointestinal: normoactive bowel sounds, soft, non-tender abdomen, no palpable masses Skin: warm, normal color, no rashes or abrasions, no fluctuance, no induration, No mottled Neurologic: AAOx3, sensation intact bilaterally, CN II-XII Intact, No weakness Psychiatric: interacting appropriately, not anxious, not encephalopathic, thought process linear Lab Data & Imaging Review 07/13/16 22:29 07/13/16 22: WBC 8.00 10^3/uL (3.80-9.50) 07/13/16 22: RBC 4.66 10^6/uL (4.40-6.38) 07/13/16 22:29 Hgb 13.5 g/dL (13.7-17.5) L 07/13/16 22: Hct 39.1 % (40.0-51.0) L 07/13/16 22:29 MCV 83.9 fL (81.5-99.8) 07/13/16 22: MCH 29.0 pg (27.9-34.1) 07/13/16 22: MCHC 34.5 g/dL (32.4-36.7) 07/13/16 22: RDW 14.6 % (11.5-15.2) 07/13/16 22: Plt Count 426 10^3/uL (150-400) H 07/13/16 22: MPV 9.2 fL (8.7-11.7) 07/13/16: Neut % (Auto) 59.3 % (39.3-74.2) 07/13/16: Lymph % (Auto) 29.1 % (15.0-45.0) 07/13/16: [place] % (Auto) 9.5 % (4.5-13.0) 07/13/16: Eos % (Auto) 1.3 % (0.6-7.6) 07/13/16: Baso % (Auto) 0.4 % (0.3-1.7) 07/13/16: Nucleat RBC Rel Count 0.0 % (0.0-0.2) 07/13/16: Absolute Neuts (auto) 4.75 10^3/uL (1.70-6.50) 07/13/16: Absolute Lymphs (auto) 2.33 10^3/uL (1.00-3.00) 07/13/16: Absolute Monos (auto) 0.76 10^3/uL (0.30-0.80) 07/13/16: Absolute Eos (auto) 0.10 10^3/uL (0.03-0.40) 07/13/16: Absolute Basos (auto) 0.03 10^3/uL (0.02-0.10) 07/13/16: Absolute Nucleated RBC 0.00 10^3/uL (0-0.01) 07/13/16: Immature Gran % 0.4 % (0.0-1.1) 07/13/16: Immature Gran # 0.03 10^3/uL (0.00-0.10) 07/13/16: PT 13.3 SEC (12.0-15.0) 07/13/16: INR 1.02 (0.83-1.16) 07/13/16: APTT 28.6 SEC (23.0-38.0) 07/13/16 22: Sodium 140 mEq/L (134-144) 07/13/16 22: Potassium 3.9 mEq/L (3.5-5.2) 07/13/16 22:29 Chloride 99 mEq/L (97-110) 07/13/16 22:29 Carbon Dioxide 25 mEq/l (22-31) 07/13/16 22: Anion Gap 16 mEq/L (8-16) 07/13/16 22:29 BUN 18 mg/dL (7-23) 07/13/16 22:29 Creatinine 0.9 mg/dL (0.7-1.3) 07/13/16 22: Estimated GFR > 60 07/13/16 22:29 Glucose 109 mg/dL (70-100) H 07/13/16 22:29 Calcium 9.7 mg/dL (8.5-10.4) 07/13/16: Magnesium 2.2 mg/dL (1.6-2.3) 07/13/16 22: Total Bilirubin 1.2 mg/dL (0.1-1.4) 07/13/16 22: Conjugated Bilirubin 0.3 mg/dL (0.0-0.5) 07/13/16: Unconjugated Bilirubin 0.9 mg/dL (0.0-1.1) 07/13/16 22:29 AST 69 IU/L (17-59) H 07/13/16 22: ALT 44 IU/L (21-72) 07/13/16 22: Alkaline Phosphatase 74 IU/L (38-126) 07/13/16 22: Creatine Kinase 706 IU/L (0-224) H 07/13/16 22: CK-MB (CK-2) Fraction 5.59 ng/mL (0-3.19) H 07/13/16 22:29 CK-MB (CK-2) % 0.8 % (0.0-4.0) 07/13/16: Creatine Kinase Interp NEGATIVE (NEGATIVE) 07/13/16: Troponin I 0.016 ng/mL (0-0.034) 07/13/16 22: NT-Pro-B Natriuret Pep 263 pg/mL (0-125) H 07/13/16 22: Total Protein 7.3 g/dL (6.3-8.2) 07/13/16: Albumin 4.1 g/dL (3.5-5.0) 07/13/16 22:29 Lipase 190.0 IU/L (23-300) 07/13/16 22:29 Visualized and Interpreted Chest x-ray results: Yes Chest X-Ray results: other (Diffuse peribronchial thickening, mild) Visualized and Interpreted EKG results: Yes EKG Interpretation: Positive for: other (Atrial fibrillation), right bundle branch block Assessment & Plan Assessment: 76-year-old male presents with paroxysmal atrial fibrillation with acute rapid ventricular response Plan: 1. Atrial fibrillation, paroxysmal. Acute rapid ventricular response, symptomatic, unclear whether patient has been in a normal sinus mechanism for the past 3 days versus experiencing symptomatic rate controlled AFib resulting in generalized fatigue and reduced exercise tolerance. -will get Cardiology consultation this a.m. and make NPO for consideration of ANEGL/DC cardioversion -discussed with Dr. Conn in the emergency department, he has informed me that the patient has received 80 mg of Lovenox, I will continue Lovenox twice daily given the patient may undergo angel with DC cardioversion -the patient has not been taking systemic anticoagulation since his most recent DC cardioversion -patient has been marginally adherent to his home dosage of diltiazem 60 mg twice daily -this dosage may not be frequent enough for the patient or it may be too low -he has responded favorably to IV diltiazem and a diltiazem drip initiated in the emergency department, current heart rate is between 80 and 105 -will initiate 30 mg of oral diltiazem at this time and then does suggest him to 45 mg q.6 hours beginning at 6:00 a.m. -if he responds favorably to this dosage without symptomatic fatigue or bradycardia, then he can be transitioned to an oral once daily equivalent of 180 mg -if he chemically cardioverts he will not require DC cardioversion and regular diet can be ordered 2. URI. Nearly resolved, guaifenesin/codeine for as needed cough Diet. NPO presently Code. Full, is MPOA. Prophylaxis. High risk patient, on therapeutic Lovenox Disposition. Anticipated discharge is either 07/14/2016 versus 07/15/2016, pending stabilization of heart rate and rhythm as well as Cardiology consultation and plan moving forward.
[2016-07-14] MEDS ORDERED: DILTIAZEM 30 MG TAB PO ONE (01:20)
[2016-07-14] MEDS ORDERED: DILTIAZEM 30 MG TAB PO SCH ×2 (01:30→06:00)
[2016-07-14 03:37] VITALS: O2SAT 96
[2016-07-14 04:44] LABS: % IMMATURE GRANULYOCYTES 0.3 % (0.0-1.1); ABSOLUTE IMMATURE GRANULOCYTES 0.02 10^3/uL (0.00-0.10); ADD DIFF? NO; ADD MORPH? NO; ADD SCAN? NO; ATYPICAL LYMPHOCYTE FLAG 20 (0-99); FRAGMENT RBC FLAG 0 (0-99); HEMATOCRIT 35.4 % (40.0-51.0); HEMOGLOBIN 11.9 g/dL (13.7-17.5); LEFT SHIFT FLG 0 (0-99); LIPEMIA HEMOLYSIS FLAG 80 (0-99); MEAN CELL HEMOGLOBIN 28.5 pg (27.9-34.1); MEAN CELL HEMOGLOBIN CONCENTR. 33.6 g/dL (32.4-36.7); MEAN CELL VOLUME 84.9 fL (81.5-99.8); MEAN PLATELET VOLUME 9.2 fL (8.7-11.7); PLATELET CLUMPS FLAG 0 (0-99); PLATELET COUNT 371 10^3/uL (150-400); RED BLOOD CELL COUNT 4.17 10^6/uL (4.40-6.38); RED CELL DISTRIBUTION WIDTH 14.6 % (11.5-15.2)
[2016-07-14 05:09] LABS: ANION GAP 9 mEq/L (8-16); CALCIUM 8.5 mg/dL (8.5-10.4); CARBON DIOXIDE 25 mEq/l (22-31); CHLORIDE 104 mEq/L (97-110); CREATININE 0.7 mg/dL (0.7-1.3); GLOMERULAR FILTRATION RATE > 60; GLUCOSE 105 mg/dL (70-100); POTASSIUM 4.3 mEq/L (3.5-5.2); SODIUM 138 mEq/L (134-144)
[2016-07-14 05:18] LABS: TROPONIN I < 0.012 ng/mL (0-0.034)
[2016-07-14] MEDS ORDERED: ENOXAPARIN 80 MG/0.8 ML SYR SC SCH (09:00)
[2016-07-14] MEDS ORDERED: DILTIAZEM CD 120 MG CAP PO SCH (09:00)
--- NOTE | 2016-07-14 10:28 | HOSPPROG ---
Hospitalist Progress Note Assessment/Plan: * paroxysmal atrial fibrillation * in sinus * was cardioverted a few days ago * had been on diltiazem for a couple days prior to this episode * would probably keep another night to make sure he does not go back into it but will discuss with Cardiology * will switch Lovenox to Eliquis Subjective: in sinus rhythm. No new complaints Objective: Vital Signs Temp Pulse Resp BP Pulse Ox 36.4 C 70 16 128/63 H 96 07/14/16 08:00 07/14/16 08:00 07/14/16 08:00 07/14/16 08:00 07/14/16 08:00 Laboratory Results 07/14/16 04:20 07/14/16 04:20 07/13/16 07/14/16 07/15/16 05:59 05:59 05:59 Intake Total 1495 Balance 1495 PT 13.3 SEC (12.0-15.0) 07/13/16 22:29 INR 1.02 (0.83-1.16) 07/13/16 22:29 discussed with Cardiology tele personally viewed interpreted - normal sinus rhythm - Physical Exam Constitutional: no apparent distress, appears nourished, not in pain Eyes: anicteric sclera, EOMI Ears, Nose, Mouth, Throat: moist mucous membranes, hearing normal, ears appear normal Cardiovascular: regular rate and rhythym, no murmur, rub, or gallop Respiratory: no respiratory distress, no rales or rhonchi, clear to auscultation Gastrointestinal: normoactive bowel sounds, soft, non-tender abdomen, no palpable masses Neurologic: AAOx3 Psychiatric: interacting appropriately, not anxious, not encephalopathic, thought process linear ICD10 Worksheet Patient Problems: Problems Problem Status Diagnosed Atrial fibrillation Acute
[2016-07-14] MEDS ORDERED: ALBUTEROL 60 PUFFS/8 GM MDI IH PRN (10:29)
[2016-07-14 11:20] VITALS: BP 118/73; PULSE 60; RESP 12; TEMP 97.9
--- NOTE | 2016-07-14 15:58 | PDCARPN ---
Cardiology Progress Note Chief Complaint: palpitations Assessment/Plan: Assessment: The patient is a 76 y/o M who presented to [facility] ER on 07/10 with new onset SVT. He was given Adenosine which slowed his rates and showed flutter waves. He was then CV x2 and converted to NSR. His palpitations started in the setting of a coughing fit and he was started on ABX for bronchitis at that time. He was also started on Diltiazem 60mg BID but did not start the medication until Sat morning. Last night the palpitations returned with associated mild lightheadedness. He is very anxious about his heart and therefore presented back to the ER. He was given IV Diltiazem and cardioverted to NSR this morning. Plan: 1. PAF and PAFL- Currently in NSR. He is very anxious about his heart. I spent 45 minutes counseling the patient on atrial fibrillation and treatment options. He was initially diagnosed in the setting of bronchitis which is still being treated. His arrhythmia was likely exacerbated by his URI. He will be d/c home on Cardizem 120mg daily and he can take a additional 60mg for breakthrough events. His CHADS VASc is 1 but he was CV and therefore will need to be on Eliquis 5mg BID for 4 weeks. Also, I would recommend he be screened for MARIN as a outpatient. Follow up with Cardiology in 1-2 weeks. 07/14/16 15:58 Subjective: currently symptoms free. Reviewed/Discussed With: hospitalist Objective: Vital Signs (8 Hrs) Temp Pulse Resp BP Pulse Ox 07/14/16 11:15 36.6 C 60 12 118/73 96 07/14/16 08:00 36.4 C 70 16 128/63 H 96 Intake/Output (24 Hrs) 07/13/16 07/14/16 07/15/16 05:59 05:59 05:59 Intake Total 1495 Balance 1495 Intake: IV Infused (ml) 1495 Diltiazem 125 mg In D5w 10 125 ml @ As Directed IV EDNOW ONE Rx#:[id number] NS W/ 20 KCl/L 1,000 ml @ 485 100 mls/hr IV CONT MATA Rx#:[id number] Other: Weight 75.9 kg Number of Voids Toilet 3 Result Diagrams: 07/14/16 04:20 07/14/16 04:20 Cardiac Labs: Cardiac Lab Results (72 Hrs) 07/14/16 04:20 Troponin I < 0.012 EKG: NSR Telemetry: NSR - Physical Exam Constitutional: WDWN Cardiovascular: regular rate and rhythm, no murmurs, no rubs, no gallops Respiratory: clear to auscultate bilat Skin: no edema ICD10 Worksheet Patient Problems: Problems Problem Status Diagnosed Atrial fibrillation Acute
[2016-07-14] MEDS ORDERED: APIXABAN 5 MG TAB PO SCH (21:00)
--- NOTE | 2016-07-15 18:19 | GDS ---
[f rep st] DISCHARGE SUMMARY DISCHARGE DIAGNOSIS: Paroxysmal atrial fibrillation. HISTORY: This is a 76-year-old male, who had an episode of SVT/atrial fibrillation a few days ago pr ior and was cardioverted in the emergency department. He returned with palpitations and atrial fibri llation. HOSPITAL COURSE: Patient was admitted and essentially converted overnight. Cardiology was consulted . They recommended long-acting diltiazem, as well as continue the Effient. He was offered to stay o vernight, but felt like he would be okay going home. DISPOSITION: Home. DISCHARGE MEDICATIONS: He is to continue aspirin 81 mg daily and start diltiazem 100 mg daily with 6 0 mg as needed for atrial fibrillation. He also will continue on Eliquis. /[id number]/MODL
== END 2016-07-14 17:53 | disposition home or self-care (01) ==
LOC: INTOOBSV 07-14 00:30 → F2W 07-14 01:15
PROVIDERS: ADMIT Internal Medicine; ATTEND Internal Medicine
DX: I48.0 Paroxysmal atrial fibrillation (principal); J06.9 Acute upper respiratory infection, unspecified
CPT/HCPCS: 71010; 93005; G0378; 96374; J1650

== ENCOUNTER 2016-07-25 20:13 | Observation (INO) | payer OTHER ==
--- NOTE | 2016-07-25 20:34 | EDPHY ---
H & P Stated Complaint: FEEL LIKE BACK IN A-FIB Time Seen by Provider: 07/25/16 20:34 - Personal History Current Tetanus/Diphtheria Vaccine: Yes Current Tetanus Diphtheria and Acellular Pertussis (TDAP): Yes - Medical/Surgical History Hx Asthma: Yes Hx Chronic Respiratory Disease: No Hx Diabetes: No Hx Cardiac Disease: Yes Hx Renal Disease: No Hx Cirrhosis: No Hx Alcoholism: No Hx HIV/AIDS: No Hx Splenectomy or Spleen Trauma: No Other PMH: asthma, AFIB. - Social History Smoking Status: Never smoked Constitutional: Initial Vital Signs Temperature (C) 36.9 C 07/25/16 20:19 Heart Rate 132 H 07/25/16 20:19 Respiratory Rate 18 07/25/16 20:19 Blood Pressure 130/93 H 07/25/16 20:19 O2 Sat (%) 96 07/25/16 20:19 O2 Delivery Mode [Post Room Air Procedure 3rd] O2 Delivery Mode [Post Nasal Cannula Procedure 1st] O2 Delivery Mode [Procedural Nasal Cannula 5th] O2 Delivery Mode [Procedural Non-Rebreather Mask 4th] O2 Delivery Mode [Procedural Non-Rebreather Mask 2nd] O2 Delivery Mode [Procedural Non-Rebreather Mask 1st] O2 Delivery Mode [.Immediate Non-Rebreather Mask Pre-Procedure] O2 Delivery Mode Room Air O2 (L/minute) [Post Procedure 2 2nd] O2 (L/minute) [Post Procedure 2 1st] O2 (L/minute) [Procedural 5th] 2 O2 (L/minute) [Procedural 4th] 15 O2 (L/minute) [Procedural 3rd] 15 O2 (L/minute) [Procedural 2nd] 15 O2 (L/minute) [Procedural 1st] 15 O2 (L/minute) [.Immediate Pre- 15 Procedure] Allergies/Adverse Reactions: No Known Allergies Allergy (Unverified 07/25/16 20:21) Home Medications: Medication Instructions Recorded AZITHROMYCIN [Z-PACK] 250 mg PO DAILY #1 packet 07/10/16 Albuterol [Proventil Inhaler HFA 1 - 2 puffs IH DAILY PRN 07/10/16 (*)] Apixaban [Eliquis] 5 mg PO BID #60 tab 07/14/16 Ascorbic Acid [Vitamin C 500 mg 500 mg PO DAILY 07/14/16 (*)] Aspirin [Aspirin 81mg (*)] 81 mg PO DAILY 07/14/16 Cyanocobalamin [Vitamin B12 (*)] 100 mcg PO DAILY 07/14/16 Diltiazem Cd [Cardizem ER 120 MG 120 mg PO DAILY #30 cap 07/14/16 (*)] Diltiazem HCl [Diltiazem 12Hr ER] 60 mg PO PRN PRN #0 cap.er.12h 07/14/16 Herbals/Supplements -Info Only 1 ea PO DAILY 07/14/16 Multivitamins [Multivitamin (*)] 1 each PO DAILY 07/14/16 Vardenafil HCl [Staxyn] 10 mg PO DAILY PRN 07/14/16 Medical Decision Making ED Course/Re-evaluation: CHIEF COMPLAINT: Rapid heart rate HISTORY OF PRESENT ILLNESS: The patient is a 76 y/o male, with a history of atrial fibrillation and atrial flutter, arriving with his complaining of rapid heart rate shortly after waking this morning. He was cardioverted in the ED on 07/10/16 for atrial flutter and was admitted on 07/13/16, about 2 weeks ago, for paroxysmal atrial fibrillation. He is compliant with his medications including his Diltazem and Eliquis. He took an additional dose of 60mg Diltazem at 17:00 tonight to treat his symptoms without improvement. He called his commercial portfolio manager and they recommended coming into the ED tonight for evaluation. He is scheduled to see his commercial portfolio manager on 07/31, 6 days from now. REVIEW OF SYSTEMS: A 10 point review of systems was performed and is negative with the exception of the elements mentioned in the history of present illness. PHYSICAL EXAM: HR, BP, O2 Sat, RR. Temp noted General Appearance: Alert, well hydrated, appropriate, and non-toxic appearing. Head: Atraumatic without scalp tenderness or obvious injury Eyes: Pupils equal, round, reactive to light and accommodation, EOMI, no trauma , no injection. Ears: Clear bilaterally, no perforation, normal landmarks Nose: Atraumatic, no rhinorrhea, clear. Throat: There is no erythema or exudates, no lesions, normal tonsils, mucus membranes moist. Neck: Supple, 2+ carotid upstroke, nontender, no lymphadenopathy. Respiratory: No retractions, no distress, no wheezes, and no accessory muscle use. Lungs are clear to auscultation bilaterally. Cardiovascular: Regular rate and rhythm, no murmurs, rubs, or gallops. Bilateral carotid, radial, dorsalis pedis, and posterior tibial pulses intact. Good capillary refill all extremities. Gastrointestinal: Abdomen is soft, nontender, non-distended, no masses, no rebound, no guarding, no peritoneal signs. Musculoskeletal: Normal active ROM of all extremities, atraumatic. Neurological: Alert, appropriate, and interactive. The patient has normal DTRs and non-focal cranial nerves, motor, sensory, and cerebellar exam. Skin: No rashes, good turgor, no nodules on palpation. Past medical history: Atrial fibrillation and atrial flutter - Diltazem, Eliquis , aspirin; asthma Past surgical history: Cataract surgery, tonsillectomy Family history: noncontributory Social history: at bedside Prior medical records reviewed including ED visit on 07/10/16 and admission on 07/13 for atrial fibrillation. DIAGNOSTICS/PROCEDURES/CRITICAL CARE TIME: The 12 lead EKG was interpreted by myself. Likely atrial flutter in the 130s based on previous presentation, RBBB, LPFB. See hard copy and/or "tracemaster" electronic copy for interpretation. Procedure: Conscious sedation. Indication: Cardioversion The patient is an appropriate candidate to tolerate procedural sedation. The patient's vitals signs and mental status are appropriate. The risks, benefits and alternatives of the sedation were discussed with the patient. The patient is ASA classification 1. The patient's Mallampati airway score was 1 and the patient did meet the 3-3-2 airway measurements. A time out was completed. The patient was sedated with 50mcg IV Fentanyl and 80mg IV propofol. The patient was monitored with continuous pulse oximetry, case monitor and end tidal CO2. There were no complications and no significant hypoxemia. I performed both the sedation and the procedure. The total time I spent at the bedside during the procedural sedation was 15 minutes. The patient was examined after the procedural sedation and has returned to their pre-sedation baseline with normal vital signs and a normal examination. 2140: Procedure: Electrical Cardioversion. Indication: Dysrhythmia. Risks, benefits, alternatives discussed with the patient and consent obtained. The patient was on a continuous case monitor, with airway equipment at the bedside. The patient was on continuous pulse oximetry and passive CO2 monitor. The cardioversion was performed with 100 joules biphasic current. The cardioversion was initially successful and brought rate into the 60s, however he returned to rapid rate in the 140s. Second shock of 100 joules biphasic current applied. The patient tolerated the procedure well with no complications. The procedure was performed by myself. I spent a total of 30 minutes of critical care time including but not limited to obtaining history, performing a physical exam, ordering interventions and the bedside monitoring of those interventions, collecting and interpreting tests and discussion with consultants but not including time spent performing procedures. DIFFERENTIAL DIAGNOSIS: The differential diagnosis for the patient's palpitations included but was not limited to atrial fibrillation, atrial flutter , SVT, myocardial ischemia, pulmonary embolus, chest wall pain, pleural inflammation, and pulmonary infectious causes. MEDICAL DECISION MAKING: This is a 76 y/o male with recent diagnosis of atrial flutter/atrial fibrillation that has been in the ED twice in the past two weeks returning tonight with a rapid heart rate. EKG shows likely atrial flutter similar to previous visit. Plan for IV, labs, and conscious sedation with cardioversion. 2134: Patient sedated and cardioverted twice at 100 joules. Rate reduced initially to sinus rhythm in 60s, then returned to 140s. Second shock reduced rate to 100s but it is now irregular with several flutter waves present. 10mg IV Diltiazem administered. Plan to call motor vehicles supervisor for consult. His BNP is elevated. Troponin is normal. 2154: Consulted with Dr. Ring, commercial portfolio manager. She is happy to admit him or will personally see him on Thursday in her office. Reassessed patient and discussed these options. His BP has dropped into the 80-90s systolic. Bolus of IV NS administered. 2246: Have been unable to maintain pressure much above 100/80 and it drops into the 80s systolic while standing. At this point I think it is best to admit patient. Discussed this with Dr. Ring, who agrees. 2254: Spoke with Dr. Mittal, hospitalist. She accepts admission. - Data Points Laboratory Results: Laboratory Results 07/25/16 20:35 07/25/16 20:35 07/25/16 20:35 WBC 8.08 10^3/uL (3.80-9.50) RBC 5.13 10^6/uL (4.40-6.38) Hgb 14.8 g/dL (13.7-17.5) Hct 43.3 % (40.0-51.0) MCV 84.4 fL (81.5-99.8) MCH 28.8 pg (27.9-34.1) MCHC 34.2 g/dL (32.4-36.7) RDW 14.6 % (11.5-15.2) Plt Count 420 H 10^3/uL (150-400) MPV 9.6 fL (8.7-11.7) Neut % (Auto) 74.7 H % (39.3-74.2) Lymph % (Auto) 18.7 % (15.0-45.0) [place] % (Auto) 5.9 % (4.5-13.0) Eos % (Auto) 0.1 L % (0.6-7.6) Baso % (Auto) 0.2 L % (0.3-1.7) Nucleat RBC Rel Count 0.0 % (0.0-0.2) Absolute Neuts (auto) 6.03 10^3/uL (1.70-6.50) Absolute Lymphs (auto) 1.51 10^3/uL (1.00-3.00) Absolute Monos (auto) 0.48 10^3/uL (0.30-0.80) Absolute Eos (auto) 0.01 L 10^3/uL (0.03-0.40) Absolute Basos (auto) 0.02 10^3/uL (0.02-0.10) Absolute Nucleated RBC 0.00 10^3/uL (0-0.01) Immature Gran % 0.4 % (0.0-1.1) Immature Gran # 0.03 10^3/uL (0.00-0.10) PT 15.4 H SEC (12.0-15.0) INR 1.22 H (0.83-1.16) APTT 34.9 SEC (23.0-38.0) D-Dimer < 0.27 ug/mLFEU (0.00-0.50) Sodium 135 mEq/L (134-144) Potassium 4.2 mEq/L (3.5-5.2) Chloride 99 mEq/L (97-110) Carbon Dioxide 25 mEq/l (22-31) Anion Gap 11 mEq/L (8-16) BUN 11 mg/dL (7-23) Creatinine 0.8 mg/dL (0.7-1.3) Estimated GFR > 60 Glucose 106 H mg/dL (70-100) Calcium 9.8 mg/dL (8.5-10.4) Magnesium 2.0 mg/dL (1.6-2.3) Troponin I 0.024 ng/mL (0-0.034) NT-Pro-B Natriuret Pep 1160 H pg/mL (0-125) Medications Given: Discontinued Medications Diltiazem HCl (Cardizem 25 Mg/5 Ml Vial) 10 mg IVP EDNOW ONE Stop: 07/25/16 21:52 Last Admin: 07/25/16 21:45 Dose: 10 mg Departure - Departure Disposition: [facility] Inpatient Acute Clinical Impression: Atrial flutter Qualifiers: Atrial flutter type: atypical Qualifier Code: (I48.4) Atypical atrial flutter Hypotension Qualifiers: Hypotension type: hypotension due to drug Qualifier Code: (I95.2) Hypotension due to drugs Condition: Good Report Scribed for: Klever Hamilton Report Scribed by: Kayleigh Arita Date of Report: 07/25/16 Time of Report: 20:56
--- NOTE | 2016-07-25 20:35 | CPEKG ---
Heart Rate: 134 RR Interval: 448 P-R Interval: 88 QRSD Interval: 138 QT Interval: 344 QTC Interval: 514 P [place]: 0 QRS [place]: 181 T Wave [place]: 20 EKG Severity - ABNORMAL ECG - EKG Impression: SINUS TACHYCARDIA EKG Impression: RBBB AND LPFB Electronically Signed By: Klever Hamilton 25-Jul-2016 22:51:43
[2016-07-25 21:03] LABS: % IMMATURE GRANULYOCYTES 0.4 % (0.0-1.1); ABSOLUTE IMMATURE GRANULOCYTES 0.03 10^3/uL (0.00-0.10); ADD DIFF? NO; ADD MORPH? NO; ADD SCAN? NO; ATYPICAL LYMPHOCYTE FLAG 0 (0-99); FRAGMENT RBC FLAG 0 (0-99); HEMATOCRIT 43.3 % (40.0-51.0); HEMOGLOBIN 14.8 g/dL (13.7-17.5); LEFT SHIFT FLG 0 (0-99); LIPEMIA HEMOLYSIS FLAG 90 (0-99); MEAN CELL HEMOGLOBIN 28.8 pg (27.9-34.1); MEAN CELL HEMOGLOBIN CONCENTR. 34.2 g/dL (32.4-36.7); MEAN CELL VOLUME 84.4 fL (81.5-99.8); MEAN PLATELET VOLUME 9.6 fL (8.7-11.7); PLATELET CLUMPS FLAG 0 (0-99); PLATELET COUNT 420 10^3/uL (150-400); RED BLOOD CELL COUNT 5.13 10^6/uL (4.40-6.38); RED CELL DISTRIBUTION WIDTH 14.6 % (11.5-15.2)
[2016-07-25 21:06] LABS: ANION GAP 11 mEq/L (8-16); CALCIUM 9.8 mg/dL (8.5-10.4); CARBON DIOXIDE 25 mEq/l (22-31); CHLORIDE 99 mEq/L (97-110); CREATININE 0.8 mg/dL (0.7-1.3); GLOMERULAR FILTRATION RATE > 60; GLUCOSE 106 mg/dL (70-100); POTASSIUM 4.2 mEq/L (3.5-5.2); SODIUM 135 mEq/L (134-144)
[2016-07-25 21:13] LABS: INR 1.22 (0.83-1.16); PROTIME(PATIENT) 15.4 SEC (12.0-15.0)
[2016-07-25 21:14] LABS: APTT 34.9 SEC (23.0-38.0)
[2016-07-25 21:17] LABS: TROPONIN I 0.024 ng/mL (0-0.034)
[2016-07-25] MEDS ORDERED: fentaNYL 100 MCG/2 ML INJ ONE (21:18)
[2016-07-25] MEDS ORDERED: PROPOFOL 200 MG/20 ML VIAL ONE (21:18)
[2016-07-25] MEDS ORDERED: DILTIAZEM 25 MG/5 ML VIAL IVP ONE ×2 (21:45→21:51)
--- NOTE | 2016-07-25 22:26 | CPEKG ---
Heart Rate: 60 RR Interval: 1000 QRSD Interval: 144 QT Interval: 412 QTC Interval: 412 QRS [place]: 89 T Wave [place]: -39 EKG Severity - ABNORMAL ECG - EKG Impression: ATRIAL FIBRILLATION, V-RATE 39-84 EKG Impression: RIGHT BUNDLE BRANCH BLOCK Electronically Signed By: Klever Hamilton 25-Jul-2016 22:51:43
[2016-07-25] MEDS ORDERED: ONDANSETRON DISINTEGRATING 4 MG TAB PO PRN (22:53)
[2016-07-25] MEDS ORDERED: ONDANSETRON 4 MG/2 ML VIAL IVP PRN (22:53)
[2016-07-25] MEDS ORDERED: ACETAMINOPHEN 325 MG TAB PO PRN (22:53)
[2016-07-25] MEDS ORDERED: NS 1,000 ML IV SCH (23:00)
--- NOTE | 2016-07-26 01:11 | GHP ---
[f rep st] HISTORY AND PHYSICAL DATE OF ADMISSION: 07/25/2016 CHIEF COMPLAINT: Palpitations and dizziness. HISTORY OF PRESENT ILLNESS: This is a 76-year-old male who is admitted most recently on 07/14/2016 w ith complaints of palpitations. The patient was diagnosed with atrial fibrillation with rapid ventri cular response. He was initiated on anticoagulation and rate control medications at disposition. Th e patient reports returning home and being essentially symptom free until the week of this presentati on. He had 1 isolated episode of atrial fibrillation for which he took p.r.n. diltiazem and had impr ovement in his symptoms. The patient re-presents on the day of presentation after 2 episodes of palp itations today both with associated lightheadedness that became uncomfortable enough that the patient presented again to the emergency department. In the ED, the patient's lightheadedness is improving as well as his palpitations. He denies any chest pain, but describes that there is a very uncomforta ble feeling in his chest when his heart rate is running so fast. He denies any vision changes, dysph agia, cough, abdominal pain, or nausea. Denies any changes in his bowel habits, dysuria, hematuria, or lower extremity edema. The patient was cardioverted twice in the emergency department but returned to atrial flutter afterward. PAST MEDICAL HISTORY: Recent diagnosis atrial fibrillation on anticoagulation. SOCIAL HISTORY: Negative for tobacco or alcohol. Occasionally the patient denies any illicit drugs. FAMILY HISTORY: Negative for any heart disease or cardiac dysrhythmias. ADVANCE DIRECTIVES: Patient is full cor, full tube. His would be his medical decision maker. REVIEW OF SYSTEMS: A 10-point review of systems is negative with the exception of that reported in t he HPI. PHYSICAL EXAMINATION: VITAL SIGNS: Blood pressure is 106/61, heart rate 79, respiratory rate 16, 95 % on room air. Patient's heart rate was in the 130s to 140s at presentation and blood pressure systo lic in the 90s. GENERAL: This is a healthy-appearing middle-aged male, in no acute distress. HEENT : Notable for moist mucous membranes. Patient has chronically asymmetric pupils. CARDIAC: Patient is irregularly irregular. PULMONARY: Good respiratory effort. Clear to auscultation bilaterally. GASTROINTESTINAL: Positive bowel sounds. ABDOMEN: Soft and nontender in all 4 quadrants. MUSCULO SKELETAL: Negative for any lower extremity edema. SKIN: Negative for any rashes. NEUROLOGIC: The patient is alert and oriented x3. PSYCHIATRIC: He is pleasant and cooperative on interview and exa mination. LABORATORY DATA: White count 8.0, hematocrit 43.3, platelets of 420. Creatinine is 0.8. TSH checke d a week ago was 2.6. EKG which I personally reviewed and interpreted shows atrial fibrillation. Ra charlie in the 60s post cardioversion. ASSESSMENT AND PLAN: This is a 76-year-old male presenting with symptomatic atrial fibrillation with rapid ventricular response. The patient has been cardioverted twice in the emergency department and treated with IV diltiazem. His rates are currently improved. 1. Acute atrial fibrillation with rapid ventricular response. The patient is already on anticoagula tion. We will continue rate controlling with IV diltiazem as needed, readmit for Cardiology and Elect rophysiology evaluation. We will continue his home dosing of p.o. diltiazem if a drip is not require d overnight. 2. Hypotension with RVR, certainly concerning. We will fluid resuscitate and follow the patient's b lood pressures with improved heart rate control. 3. Prophylaxis: The patient is on anticoagulation. DIET: Cardiac. DISPOSITION: I expect in greater than 2 midnights as the patient is symptomatic from his atrial fibr illation and will require EP evaluation and potentially EP intervention. Discussed the case with the emergency room physician. Patient will be triaged to the PCU for cardiac monitoring and care. /[id number]/MODL
[2016-07-26 03:42] VITALS: RESP 16
[2016-07-26 04:39] LABS: % IMMATURE GRANULYOCYTES 0.2 % (0.0-1.1); ABSOLUTE IMMATURE GRANULOCYTES 0.01 10^3/uL (0.00-0.10); ADD DIFF? NO; ADD MORPH? NO; ADD SCAN? NO; ATYPICAL LYMPHOCYTE FLAG 40 (0-99); FRAGMENT RBC FLAG 0 (0-99); HEMATOCRIT 37.5 % (40.0-51.0); HEMOGLOBIN 12.5 g/dL (13.7-17.5); LEFT SHIFT FLG 0 (0-99); LIPEMIA HEMOLYSIS FLAG 80 (0-99); MEAN CELL HEMOGLOBIN 28.9 pg (27.9-34.1); MEAN CELL HEMOGLOBIN CONCENTR. 33.3 g/dL (32.4-36.7); MEAN CELL VOLUME 86.8 fL (81.5-99.8); MEAN PLATELET VOLUME 9.9 fL (8.7-11.7); PLATELET CLUMPS FLAG 0 (0-99); PLATELET COUNT 341 10^3/uL (150-400); RED BLOOD CELL COUNT 4.32 10^6/uL (4.40-6.38); RED CELL DISTRIBUTION WIDTH 14.6 % (11.5-15.2)
[2016-07-26 04:50] LABS: ANION GAP 7 mEq/L (8-16); CALCIUM 8.8 mg/dL (8.5-10.4); CARBON DIOXIDE 28 mEq/l (22-31); CHLORIDE 104 mEq/L (97-110); CREATININE 0.9 mg/dL (0.7-1.3); GLOMERULAR FILTRATION RATE > 60; GLUCOSE 98 mg/dL (70-100); POTASSIUM 4.4 mEq/L (3.5-5.2); SODIUM 139 mEq/L (134-144)
[2016-07-26 07:43] VITALS: BP 118/70; PULSE 67; TEMP 98.4; O2SAT 93
[2016-07-26] MEDS ORDERED: APIXABAN 5 MG TAB PO SCH (09:00)
--- NOTE | 2016-07-26 09:20 | CPEKG ---
Heart Rate: 70 RR Interval: 857 P-R Interval: 156 QRSD Interval: 142 QT Interval: 432 QTC Interval: 467 P [place]: 44 QRS [place]: 89 T Wave [place]: 19 EKG Severity - ABNORMAL ECG - EKG Impression: SINUS RHYTHM EKG Impression: ATRIAL PREMATURE COMPLEX EKG Impression: RIGHT BUNDLE BRANCH BLOCK EKG Impression: SINUS RHYTHM HAS REPLACED ATRIAL FIB NOTED ON PRIOR Electronically Signed By: Mac Pisano 26-Jul-2016 13:09:59
--- NOTE | 2016-07-26 09:26 | PDCARPN ---
Cardiology Progress Note Assessment/Plan: Assessment/plan: 76-year-old male with his 3rd episode of atrial flutter. Was initially seen in the emergency department on July 10 with atrial flutter that responded to cardioversion. He was started on Eliquis and diltiazem. At the time it was felt that he was having an asthma exacerbation / URI as a trigger for his atrial arrhythmia. He was then readmitted on July 13 with atrial flutter and ultimately converted after intravenous diltiazem. Was discharged on long-acting dilt after that visit. His echocardiogram is normal. His TSH is normal. He is now readmitted with atrial flutter that required cardioversion in the emergency department as he was highly symptomatic. After cardioversion he was in atrial fibrillation with controlled ventricular response and then ultimately converted to sinus rhythm overnight. Troponins have been negative. 1. Atrial flutter and atrial fibrillation: It seems that his primary arrhythmia is atrial flutter. Has failed diltiazem 120 mg daily with p.r.n. 60 mg dose as breakthrough. I discussed options for antiarrhythmic drug therapy as a bridge to consideration for ablation. I am reluctant to use a class 1 C agent given his right bundle branch block. We will load him with amiodarone 400 mg twice daily for 1 week, followed by 400mg daily for 1 week, then 200 mg daily. I explained that there are potential toxicities related to amiodarone, but this would likely not be a long-term drug for him. Continue Eliquis. At this point his chads 2 Vasc score is only 1, but he has had 2 separate cardioversions, and I think he requires at least 4 more weeks of anticoagulation , especially if we are going to consider ablation. We will have him seen by Dr. Madrigal in the outpatient setting as soon as possible. Would recommend outpatient sleep medicine evaluation to see if there is some sleep disordered breathing that is triggering his atrial fibrillation. I doubt that this is an ischemically mediated rhythm. 2.: Anemia: This is mild. He denies overt bleeding. This will need to be followed. 3.: Reactive airways disease: Appears stable. 4. night sweats: This has occurred since starting diltiazem and apixaban. It is possible that is a medication side effect. Certainly if symptoms do not santi, he will need further evaluation with his primary care physician. Greater than 30 minutes was spent with direct patient care, counseling, summarizing records, reviewing data. stable for discharge home from a cardiac standpoint. 07/26/16 09:33 Subjective: Mustapha feels better this morning in normal sinus rhythm. He is currently not having chest pain or shortness of breath. When he is in atrial arrhythmia he has 5 mental fogginess, weakness, overall general malaise. He has not had recent fevers. He has had night sweats since being on the diltiazem and is concerned that it could be a medication side effect. No diarrhea or vomiting. He has not noticed any hematochezia, melena, hematemesis. Reviewed/Discussed With: family Time Spent With Patient: 30 minutes Objective: Vital Signs (8 Hrs) Temp Pulse Resp BP Pulse Ox 07/26/16 07:42 36.9 C 67 16 118/70 93 07/26/16 03:41 36.6 C 65 16 100/72 92 07/26/16 01:03 36.7 C 86 18 126/80 H 94 Intake/Output (24 Hrs) 07/25/16 07/26/16 07/27/16 05:59 05:59 05:59 Intake Total 1100 Balance 1100 Intake: Oral (ml) 100 IV Infused (ml) 1000 Other: Weight 77.111 kg Number of Voids Toilet 1 No acute distress. JVP less than 10. Regular rate and rhythm with soft early systolic murmur at the left lower sternal border. Lungs clear auscultation bilaterally without wheezes rhonchi or rales Abdomen soft nontender nondistended without bruits masses or hepatosplenomegaly. Extremities are warm and well perfused without cyanosis clubbing or edema. Neuro alert and oriented x3 without gross focal neurological deficits. Result Diagrams: 07/26/16 03:37 07/26/16 03:37 EKG: Initial ER EKG July 25 showed atrial flutter, right bundle-branch block and left posterior fascicular block. post cardioversion EKG showed atrial fibrillation with controlled ventricular response. EKG this morning with shows sinus rhythm with premature atrial contractions. Right bundle branch block. Telemetry: NSR ICD10 Worksheet Patient Problems: Problems Problem Status Diagnosed Atrial flutter Acute Hypotension Acute Atrial fibrillation Acute
[2016-07-26] MEDS ORDERED: ALBUTEROL 60 PUFFS/8 GM MDI IH PRN (09:28)
[2016-07-26] MEDS ORDERED: AMIODARONE HCL 200 MG TAB PO SCH (09:30)
--- NOTE | 2016-07-26 14:19 | GDS ---
[f rep st] DISCHARGE SUMMARY DISCHARGE DIAGNOSIS: Recurrent atrial fibrillation. CONSULTATIONS: Cardiology. HISTORY OF PRESENT ILLNESS: The patient is a 76-year-old male, most recently admitted on 07/14/2016 with complaints of palpitations. At that time, he was noted to have AFib with RVR and was started on anticoagulation and diltiazem. He was doing well for approximately a week, and then he had an episode of rapid heart rate, in which he took a p.r.n. diltiazem. He re-presented this time because he had 2 episodes of palpitations and lightheadedness. In the ER, he was cardioverted twice. HOSPITAL COURSE: 1. Recurrent atrial fibrillation with rapid ventricular response: Appreciate Cardiology evaluation. Will load with pcarrillo yang. Patient will follow up with Dr. Ring and likely cardioversion as an outpatient. Continue Eliquis b.i.d. 2. Hypotension initially with RVR. This has since resolved. DISPOSITION: Patient is stable for discharge. MEDICATIONS: New medications: Amio. FOLLOWUP: Dr. Surekha Ring. /[id number]/MODL MTDD
[2016-07-27] MEDS ORDERED: MULTIVITAMINS 1 EACH TAB PO SCH (09:00)
[2016-07-27] MEDS ORDERED: CYANO/VITAMIN B12 100 MCG TAB PO SCH (09:00)
== END 2016-07-26 12:20 | disposition home or self-care (01) ==
LOC: OBSVTOIN 22:53 → INTOOBSV 22:53 → F2W 07-26 00:59
PROVIDERS: ADMIT Hospitalist; ATTEND Internal Medicine
PROC: 5A2204Z Restoration of Cardiac Rhythm, Single (ICD-10-PCS; principal; 2016-07-25)
DX: I48.91 Unspecified atrial fibrillation (principal); I48.4 Atypical atrial flutter; I95.9 Hypotension, unspecified
CPT/HCPCS: 92960; 93005; 96374; 99291; G0378; J2704; J3010

== ENCOUNTER → 2016-08-06 | Outpatient (CLI) | payer OTHER ==
[~2016-08-06] MED LIST: IOPAMIDOL (ISOVUE 370) 100 ML BTL IV ONE
--- NOTE | 2016-08-06 17:27 | CT ---
CT Chest Pulmonary Angiogram With Contrast Enhancement and Multiplanar Reconstructions at 1649 hours History: Shortness of breath, fatigue, atrial fibrillation, abnormal D-dimer, R79.89, R06.02. Comparison: Chest x-ray October 2010. Technique: 1.25 mm axial multidetector helical CT angiogram imaging was performed through the chest w hile 90 mL [id number]-[id number] were injected intravenously without complication. The images were then transfe rred to an independent workstation where multiplanar and three-dimensional reconstructions were perfo rmed by the interpreting physician and reviewed at multiple windows. Dose reduction techniques were u tilized. CT Pulmonary Angiogram Findings: No CT evidence of definite pulmonary thromboemboli. Coronary artery calcifications LAD. Normal cardiac size. Mild atherosclerotic aorta with ectatic ascending aorta carlos manuel suring 3.8 x 3.7 cm. No aortic dissection. CT Chest Findings: Chronically elevated left hemidiaphragm. Hyperinflation of the lungs without evide nce of bullous emphysema. No acute pneumonia, pleural effusion or pneumothorax. No destructive osseou s lesions. No significant mediastinal, hilar or axillary adenopathy. Impression: 1. No definite pulmonary thromboemboli. 2. Ectatic atherosclerotic ascending thoracic aorta measuring up to 3.8 cm. 3. Coronary atherosclerosis. 4. Hyperinflation bilateral lungs and chronically elevated left hemidiaphragm without pneumonia, pleu ral effusion or pneumothorax. Findings and recommendations discussed with Dr. Dave Tse at 1715 hours. A test result has been communicated to a licensed care provider and documented in the [facility] Critical Result system on 08/06/2016 17:23, Message ID [id number].
== END ==
LOC: FIMAGING 16:07
PROVIDERS: ATTEND Family Medicine
DX: R06.02 Shortness of breath (principal); R79.89 Other specified abnormal findings of blood chemistry; R53.83 Other fatigue; I48.91 Unspecified atrial fibrillation; I77.810 Thoracic aortic ectasia; I25.10 Atherosclerotic heart disease of native coronary artery without angina pectoris; J98.6 Disorders of diaphragm
CPT/HCPCS: 71275; Q9967

== ENCOUNTER 2016-09-01 07:13 | Observation (INO) | payer OTHER ==
[2016-09-01] MEDS ORDERED: NS 1,000 ML IV ONE (07:15)
[2016-09-01] MEDS ORDERED: MIDAZOLAM 2 MG/2 ML VIAL IVP ONE (07:15)
--- NOTE | 2016-09-01 07:38 | CPEKG ---
Heart Rate: 66 RR Interval: 909 P-R Interval: 172 QRSD Interval: 150 QT Interval: 432 QTC Interval: 453 P [place]: 66 QRS [place]: 108 T Wave [place]: 17 EKG Severity - ABNORMAL ECG - EKG Impression: SINUS RHYTHM EKG Impression: RIGHT BUNDLE BRANCH BLOCK Electronically Signed By: Roland Madrigal 02-Sep-2016 09:10:05
[2016-09-01 08:00] LABS: % IMMATURE GRANULYOCYTES 0.2 % (0.0-1.1); ABSOLUTE IMMATURE GRANULOCYTES 0.01 10^3/uL (0.00-0.10); ADD DIFF? NO; ADD MORPH? NO; ADD SCAN? NO; ATYPICAL LYMPHOCYTE FLAG 40 (0-99); FRAGMENT RBC FLAG 0 (0-99); HEMATOCRIT 42.6 % (40.0-51.0); HEMOGLOBIN 14.7 g/dL (13.7-17.5); LEFT SHIFT FLG 0 (0-99); LIPEMIA HEMOLYSIS FLAG 90 (0-99); MEAN CELL HEMOGLOBIN 29.5 pg (27.9-34.1); MEAN CELL HEMOGLOBIN CONCENTR. 34.5 g/dL (32.4-36.7); MEAN CELL VOLUME 85.5 fL (81.5-99.8); MEAN PLATELET VOLUME 9.4 fL (8.7-11.7); PLATELET CLUMPS FLAG 0 (0-99); PLATELET COUNT 269 10^3/uL (150-400); RED BLOOD CELL COUNT 4.98 10^6/uL (4.40-6.38); RED CELL DISTRIBUTION WIDTH 15.8 % (11.5-15.2)
[2016-09-01 08:17] LABS: ANION GAP 9 mEq/L (8-16); CARBON DIOXIDE 28 mEq/l (22-31); CHLORIDE 102 mEq/L (97-110); CREATININE 0.9 mg/dL (0.7-1.3); GLOMERULAR FILTRATION RATE > 60; GLUCOSE 94 mg/dL (70-100); MAGNESIUM 2.1 mg/dL (1.6-2.3); POTASSIUM 3.9 mEq/L (3.5-5.2); SODIUM 139 mEq/L (134-144)
[2016-09-01] MEDS ORDERED: HEPARIN 10,000 UNIT/10 ML MDV ONE (08:17)
[2016-09-01] MEDS ORDERED: LIDOCAINE 1% 30 ML SDV ONE (08:17)
[2016-09-01] MEDS ORDERED: BUPIVACAINE 0.5% 30 ML SDV ONE (08:17)
[2016-09-01] MEDS ORDERED: ISOPROTERENOL HCL 0.2 MG/ML 5ML AMP ONE (08:17)
[2016-09-01] MEDS ORDERED: fentaNYL 100 MCG/2 ML INJ ONE (08:18)
[2016-09-01] MEDS ORDERED: PROPOFOL 200 MG/20 ML VIAL ONE ×2 (08:18)
[2016-09-01 08:21] LABS: INR 1.02 (0.83-1.16); PROTIME(PATIENT) 13.3 SEC (12.0-15.0)
[2016-09-01] MEDS ORDERED: LIDOCAINE 2% 100 MG/5 ML SYR IVP ONE (08:21)
[2016-09-01] MEDS ORDERED: ROCURONIUM 100 MG/10 ML VIAL ONE (08:21)
[2016-09-01 08:22] LABS: APTT 29.3 SEC (23.0-38.0)
[2016-09-01] MEDS ORDERED: ONDANSETRON 4 MG/2 ML VIAL ONE (09:39)
[2016-09-01] MEDS ORDERED: DEXAMETHASONE 4 MG/ML VIAL ONE (09:39)
[2016-09-01] MEDS ORDERED: LEVALBUTEROL INHALER 200 PUFFS/15 GM MDI IH PRN (12:23)
[2016-09-01] MEDS ORDERED: VARDENAFIL HCL PO PRN (12:23)
--- NOTE | 2016-09-01 12:23 | EPPROC ---
Electrophysiology Procedure Note: ELECTROPHYSIOLOGIC STUDY AND CATHETER MEDIATED ABLATION FOR SUBEUSTACHIAN ISTHMUS DEPENDENT COUNTERCLOCKWISE ATRIAL FLUTTER: INDICATION: Recurrent atrial flutter PROCEDURES PERFORMED: 16785-58 EP evaluation with RA/RV/LA pace/record, with arrhythmia induction 67159-54 EP evaluation with RA/RV pace record, insert/reposition catheter, with arrhythmia induction 23987 SVT ablation 10861 3D mapping Fluoroscopy Catheters & Anesthesia: The patient arrived in the Electrophysiology Laboratory in the fasting state. The right clavicular region, right groin, and left groin area were prepped and draped in the usual sterile manner. Anesthesiologist administered general anesthesia. Appropriate non-invasive blood pressure, pulse oximetry and end- tidal CO2 monitoring was established. All catheters were placed percutaneously using the modified Seldinger technique , and advanced into position under fluoroscopic guidance. One #7 Nicaraguan deflectable octapolar electrode catheter was advanced to the His-bundle position via the left femoral vein and then into the coronary sinus. One # 7 Nicaraguan Halo catheter was inserted through the right femoral vein and was placed at the tricuspid annulus. Programmed stimulation was performed from the right atrium, coronary sinus ( left atrium) and right ventricle. Parahisian pacing demonstrated all retrograde conduction over the AV node. On arrival to the Electrophysiology Laboratory the patient was in sinus rhythm, RBBB. Antegrade WBB 430 ms, no slow AV amee pathway present. Atrial flutter has been seen previously. In preparation for ablation of typical atrial flutter, a high-resolution 3D (3 dimensional) Carto electroanatomical map of the sub-Eustachian isthmus and right atrium was obtained during pacing of the posterolateral coronary sinus. For ablation of typical atrial flutter, one #8.5 Nicaraguan ramp1 sheath was placed in the right atrium. A #8 [place]araguan deflectable quadrapolar electrode catheter ( 2mm-5mm-2mm spacing) with 3.5 mm irrigated tip electrode and location sensor for the [employer] mapping system was inserted in the long sheath and advanced to the right atrium. Radiofrequency applications were applied between the tricuspid annulus at 0630 oclock as seen in the JULITA view and the inferior vena cava. This achieved conduction block across the isthmus. There was recurrence of conduction at the IVC RA junction after 20 minutes but further ablation in this area terminated conduction across CT isthmus. Post ablation, a high-resolution electroanatomical map of the sub-Eustachian isthmus was obtained during pacing of the posterolateral coronary sinus. This confirmed conduction block across the sub-Eustachian isthmus. Bidirectional block was also confirmed by pacing. The catheters were removed. Long sheath was changed to short 9Fr sheath. Protamine was administered. The patient was transferred to the cardiovascular holding area in stable condition. Vascular access sheaths were removed in the holding area. There were no apparent complications. CONCLUSIONS: 1. Atrial flutter. 2. Successful catheter mediated ablation of cavotricuspid isthmus achieving bi -directional conduction block across cavotricuspid isthmus. 3. No atrial arrhythmias inducible post ablation. 4. No apparent complications. Patient Problems: Problems Problem Status Onset Atrial fibrillation Acute Atrial flutter Acute Hypotension Acute
[2016-09-01] MEDS ORDERED: OXYCODONE/APAP 5/325 TAB PO PRN (12:24)
[2016-09-01] MEDS ORDERED: ACETAMINOPHEN 325 MG TAB PO PRN (12:24)
[2016-09-01] MEDS ORDERED: ONDANSETRON 4 MG/2 ML VIAL IVP PRN (12:24)
--- NOTE | 2016-09-01 12:46 | CPEKG ---
Heart Rate: 61 RR Interval: 984 P-R Interval: 180 QRSD Interval: 150 QT Interval: 468 QTC Interval: 472 P [place]: 34 QRS [place]: 92 T Wave [place]: -1 EKG Severity - ABNORMAL ECG - EKG Impression: SINUS RHYTHM EKG Impression: ATRIAL PREMATURE COMPLEX EKG Impression: IVCD, CONSIDER ATYPICAL RBBB Electronically Signed By: Roland Madrigal 02-Sep-2016 09:10:03
[2016-09-01 13:25] LABS: ANION GAP 12 mEq/L (8-16); CALCIUM 9.1 mg/dL (8.5-10.4); CARBON DIOXIDE 25 mEq/l (22-31); CHLORIDE 102 mEq/L (97-110); CREATININE 0.9 mg/dL (0.7-1.3); GLOMERULAR FILTRATION RATE > 60; GLUCOSE 91 mg/dL (70-100); MAGNESIUM 1.9 mg/dL (1.6-2.3); POTASSIUM 4.3 mEq/L (3.5-5.2); SODIUM 139 mEq/L (134-144)
[2016-09-01 23:28] VITALS: RESP 18
[2016-09-02 06:18] LABS: % IMMATURE GRANULYOCYTES 0.3 % (0.0-1.1); ABSOLUTE IMMATURE GRANULOCYTES 0.02 10^3/uL (0.00-0.10); ADD DIFF? NO; ADD MORPH? NO; ADD SCAN? NO; ATYPICAL LYMPHOCYTE FLAG 20 (0-99); FRAGMENT RBC FLAG 0 (0-99); HEMOGLOBIN 12.8 g/dL (13.7-17.5); LEFT SHIFT FLG 0 (0-99); LIPEMIA HEMOLYSIS FLAG 80 (0-99); MEAN CELL HEMOGLOBIN 29.2 pg (27.9-34.1); MEAN CELL HEMOGLOBIN CONCENTR. 33.7 g/dL (32.4-36.7); MEAN CELL VOLUME 86.8 fL (81.5-99.8); MEAN PLATELET VOLUME 10.1 fL (8.7-11.7); PLATELET CLUMPS FLAG 0 (0-99); PLATELET COUNT 235 10^3/uL (150-400); RED BLOOD CELL COUNT 4.38 10^6/uL (4.40-6.38); RED CELL DISTRIBUTION WIDTH 15.7 % (11.5-15.2)
[2016-09-02 06:28] LABS: ANION GAP 7 mEq/L (8-16); CALCIUM 9.3 mg/dL (8.5-10.4); CARBON DIOXIDE 27 mEq/l (22-31); CHLORIDE 101 mEq/L (97-110); CREATININE 0.9 mg/dL (0.7-1.3); GLOMERULAR FILTRATION RATE > 60; GLUCOSE 103 mg/dL (70-100); POTASSIUM 4.7 mEq/L (3.5-5.2); SODIUM 135 mEq/L (134-144)
[2016-09-02 06:29] LABS: INR 1.08 (0.83-1.16); PROTIME(PATIENT) 13.9 SEC (12.0-15.0)
[2016-09-02 06:40] LABS: CREATINE KINASE-MB FRACTION 5.41 ng/mL (0-3.19)
[2016-09-02 06:41] LABS: CK-MB INTERPRETATION POSITIVE (NEGATIVE)
[2016-09-02 08:33] VITALS: BP 117/73; PULSE 57; TEMP 98.3; O2SAT 97
--- NOTE | 2016-09-02 08:47 | ECHO ---
[id number] + + [address] : : [place] [address] : : [phone] + + Adult Echocardiographic Report + -----+ :Name: CLARI DIAMOND LStudy Date: 09/02/2016 07:23 AM : : Hospital Admission Number: [id number] Location : 216: :: 1940 Gender: Male Height: 73 in : :Age: 76 yrs Race: WH Weight: 165 lb : :Reason For Study: F/U post EP study : : BSA: 2.0 meters2 : + -----+ MMode/2D Measurements \T\ Calculations IVSd: 0.67 cm LVIDd: 5.1 cm FS: 47.0 % Ao root diam: LVPWd: 0.57 cm LVIDs: 2.7 cm EDV(Teich): 3.8 cm 122.2 ml LA dimension: ESV(Teich): 26.8 ml 4.0 cm EF(Teich): 78.1 % LVOT diam: 2.1 cmLVLd ap4: 8.0 cm SV(MOD-sp4): LVOT area: EDV(MOD-sp4): 73.0 ml 3.5 cm2 92.0 ml LVLs ap4: 6.3 cm ESV(MOD-sp4): 19.0 ml EF(MOD-sp4): 79.3 % Normal Measurement Values: + + :LVIDd (3.5-5.7cm) IVSd (0.6-1.1cm) LVPWd (0.6-1.1cm) Aortic Root (2.0-3.7cm)Left Atrium (1.5-4.0cm): :LV Vol(d) (76-115ml) LV Vol(s) (29-48ml) Ejec Fraction (50-65%)PV Alan (0.6- 1.2m/s) TV Alan (0.4-1.0m/s) : :MV E Alan (0.8-1.0m/s)MV A Alan (0.3-1.0m/s)LVOT Alan (0.7-1.2m/s) Asc Ao Alan ( 0.9-1.8m/s) : + + Doppler Measurements \T\ Calculations MV E max alan: 67.6 cm/sec Ao mean P.9 mmHg TR max alan: 205.5 cm/sec MV A max alan: 50.8 cm/sec Ao V2 mean: 103.5 cm/sec TR max P.9 mmHg MV E/A: 1.3 Ao V2 VTI: 35.0 cm RAP systole: 5.0 mmHg RVSP(TR): 21.9 mmHg Left Ventricle The left ventricle is normal in size. There is mild concentric left ventricular hypertrophy. Left ventricular systolic function is normal. Ejection Fraction = 65-70%. No regional wall motion abnormalities noted. Right Ventricle The right ventricle is normal in size and function. Atria The left atrial size is normal. The right atrium is mild to moderately dilated. The interatrial septum is intact with no evidence for an atrial septal defect. Mitral Valve The mitral valve is normal in structure and function. There is no evidence of mitral valve prolapse. There is no mitral valve stenosis. There is mild mitral regurgitation. Tricuspid Valve Normal tricuspid valve. There is mild tricuspid regurgitation. Right ventricular systolic pressure is normal. Aortic Valve The aortic valve is trileaflet. The aortic valve opens well. AV mild calcification. There is no aortic stenosis. There is no aortic insufficiency. Pulmonic Valve The pulmonic valve is normal in structure and function. trace to mild pulmonic valvular regurgitation. Great Vessels The aortic root is normal size. Pericardium/Pleural Trivial anterior pericardial effusion. Conclusion A complete two-dimensional transthoracic echocardiogram was performed (2D, M-mode, Doppler and color flow Doppler). Left ventricular systolic function is normal. There is mild concentric left ventricular hypertrophy. Ejection Fraction = 65-70%. The right atrium is mild to moderately dilated. There is mild mitral regurgitation. There is mild tricuspid regurgitation. AV mild calcification. trace to mild pulmonic valvular regurgitation. Trivial anterior pericardial effusion Final Reading Physician: Roland Madrigal MD electronically signed on 09/02/2016 08:45 AM Ordering Physician: Roland Madrigal Performed By: Amy Jung, [facility]
--- NOTE | 2016-09-02 08:56 | CPEKG ---
Heart Rate: 60 RR Interval: 1000 P-R Interval: 176 QRSD Interval: 146 QT Interval: 440 QTC Interval: 440 P [place]: 44 QRS [place]: 88 T Wave [place]: -20 EKG Severity - ABNORMAL ECG - EKG Impression: SINUS RHYTHM EKG Impression: RIGHT BUNDLE BRANCH BLOCK Electronically Signed By: Roland Madrigal 02-Sep-2016 09:09:57
--- NOTE | 2016-09-02 12:38 | GDS ---
ADMISSION DIAGNOSES: 1. Atrial flutter. 2. Paroxysmal atrial fibrillation. 3. Asthma. 4. Right bundle branch block. 5. Hypertension. DISCHARGE DIAGNOSES: 1. Paroxysmal atrial fibrillation. 2. Atrial flutter. 3. Asthma 4. Right bundle branch block. 5. Status post atrial flutter electrophysiology study and atrial flutter ablation. 6. Hypertension. PROCEDURES DONE DURING HOSPITALIZATION: 1. Electrocardiogram. 2. Electrophysiology procedure. 3. Successful catheter-mediated ablation of cavotricuspid isthmus, achieving bidirectional conduction block. 4. Echocardiogram. BRIEF HISTORY: Please see H and P. The patient is a 76-year-old male who, since the beginning of this year, has had 3 episodes of sustained palpitation requiring emergency department visit. His initial visit, he was noted to in a counter-clockwise atrial flutter. His second episode, he was found to be in atrial fibrillation, and his third visit he was in atrial flutter, which eventually went into atrial fibrillation, subsequently requiring cardioversion. He had been started on antiarrhythmic therapy of amiodarone and anticoagulation with Eliquis. He was sent to Electrophysiology services of Dr. Madrigal for evaluation. After being evaluated by Dr. Madrigal, he was felt to be an appropriate candidate, with options of either ablating the atrial flutter, and evaluate and see how he does, if he develops any further atrial fibrillation, or ablate both atrial flutter and his atrial fibrillation at the same time, if possible. Pros and cons of both approaches were discussed at length with the patient. It was decided that he wanted to proceed with just an atrial flutter ablation at this time. HOSPITAL COURSE: Patient was admitted through the CVC, prepped for procedure, and taken to electrophysiology lab. There, Dr. Madrigal performed an EP procedure, followed by where he was able to identify foci causing atrial flutter. He successfully performed catheter-mediated ablation of cavotricuspid isthmus, achieving bidirectional conduction block across the cavotricuspid isthmus. No apparent complications. No atrial arrhythmias were inducible post ablation. The patient ultimately transferred back to the CVC and to the PCU for overnight observation. During the night, patient has been remaining in sinus rhythm with rare premature ventricular contraction. No significant malignant arrhythmias or pauses noted. He denies any chest pain, shortness of breath, palpitations, or lightheadedness throughout the evening. He has been up and walking in the unit without any difficulties. He has had no bleeding issues at either catheter insertion site. PHYSICAL EXAMINATION: GENERAL APPEARANCE: Done today. Medium-built, well groomed male. He is alert and oriented to person, place, time, and situation. Appears to be under no acute distress. VITAL SIGNS: Current vital signs are a blood pressure of 117/73, heart rate of 57, sinus dawson on the monitor. Respirations 18, saturating 97% on room air. Temperature of 36.8 degree Celsius. HEENT: Head is normocephalic. Lips and tongue are pink and moist with no signs of cyanosis. Conjunctivae pink. NECK: Trachea is midline, + 2 carotid pulses bilateral. No auscultated bruits, no jugular vein distention. RESPIRATORY: Lungs clear to auscultation, no rhonchi, rales or wheezes. No accessory muscle use, no intercostal muscle retraction noted. CARDIAC: Regular rate, regular rhythm. S1, S2. No S3, S4, gallop, rubs or murmur noted. ABDOMEN: Soft, nontender. Bowel sounds x4 quadrants. SKIN: [place], warm, dry. No cyanosis, no clubbing. No peripheral edema. VASCULAR: +2 carotids bilateral, +2 radials bilateral, +1 posterior tibial pulses bilateral. Catheter insertion sites, bilateral groin sites, without redness, swelling, drainage, ecchymosis or hematoma. No auscultated bruit at either site. NEURO: Cranial nerves 2-12 grossly intact. LABORATORY STUDIES: Laboratory studies drawn today show WBC of 7.93, hemoglobin of 12.8, hematocrit 38.0, platelet count 235. INR 1.08. Sodium 135, potassium 4.7, chloride 101, CO2 of 27, BUN 22, creatinine 0.9, glucose 103, calcium 9.3, CK of 123, CK-MB fraction 5.41, CK-MB percentage 4.4. Troponin 1.050. Note: Expected to have elevated cardiac markers status post ablation. Electrocardiogram done this morning shows sinus rhythm with right bundle branch block. Echocardiogram done this morning shows normal LV systolic function with mild concentric LVH. EF was estimated at 65% to 70%. RA was mild to moderately dilated, mild MR, trace to mild TR, trivial anterior pericardial effusion. DISCHARGE DISPOSITION: Patient will be discharged home in stable condition. He is under activity restrictions of not lifting more than 10 pounds for the next week and no strenuous activity for the next 2 weeks. DISCHARGE MEDICATIONS: Please see discharge med reconciliation sheet. Note the patient's amiodarone has been discontinued. He has been advised to restart his Eliquis tonight at tonight's dose. Patient has requested to come off his amlodipine, Dr. Madrigal has asked him to monitor his blood pressure twice a day, keeping a log, and bringing it back with him during the next office visit. At that time, he will determine if he needs to be restarted on it at that time. DISCHARGE INSTRUCTIONS: BP monitoring as above. Post ablation discharge instructions gone over with the patient and his , including monitoring for signs of infection, bleeding precautions, activity restrictions, bathing precautions, and medication compliance. At the time of discharge, the patient and his verbalize understanding of all instructions. They have a follow-up visit set with Dr. Madrigal on October 02. They have been told that if any problems or concerns post discharge, they are to call our office or return to the hospital. Total time spent on discharge greater than 30 minutes. /[id number]/MODL MTDD
== END 2016-09-02 10:31 | disposition home or self-care (01) ==
LOC: FCATH 07:13 → F2W 12:24
PROVIDERS: ADMIT Internal Medicine Cardiovascular Disease; ATTEND Internal Medicine Cardiovascular Disease
PROC: 02563ZZ Destruction of Right Atrium, Percutaneous Approach (ICD-10-PCS; principal; 2016-09-01)
PROC: 02K83ZZ Map Conduction Mechanism, Percutaneous Approach (ICD-10-PCS; 2016-09-01)
PROC: 4A023FZ Measurement of Cardiac Rhythm, Percutaneous Approach (ICD-10-PCS; 2016-09-01)
PROC: 5A1213Z Performance of Cardiac Pacing, Intermittent (ICD-10-PCS; 2016-09-01)
DX: I48.0 Paroxysmal atrial fibrillation (principal); I48.92 Unspecified atrial flutter; J45.909 Unspecified asthma, uncomplicated; I45.0 Right fascicular block; I10 Essential (primary) hypertension; Z79.01 Long term (current) use of anticoagulants
CPT/HCPCS: 93005; 93306; 93613; 93621; 93653; C1731; C1732; C1766; G0378; J1100; J1644; J2001; J2405; J2704; J3010

== ENCOUNTER 2018-10-06 20:17 | Emergency (ER) | payer OTHER ==
--- NOTE | 2018-10-06 20:38 | EDPHY ---
H & P Stated Complaint: right thigh pain on a plane 9 days ago with bruising Time Seen by Provider: 10/06/18 20:38 - Personal History Current Tetanus/Diphtheria Vaccine: Yes Current Tetanus Diphtheria and Acellular Pertussis (TDAP): Yes - Medical/Surgical History Hx Asthma: Yes Hx Chronic Respiratory Disease: No Hx Diabetes: No Hx Cardiac Disease: Yes Hx Renal Disease: No Hx Cirrhosis: No Hx Alcoholism: No Hx HIV/AIDS: No Hx Splenectomy or Spleen Trauma: No Other PMH: asthma, AFIB flutter. - Social History Smoking Status: Never smoked Constitutional: Initial Vital Signs Temperature (C) 36.5 C 10/06/18 20:20 Heart Rate 70 10/06/18 20:20 Respiratory Rate 16 10/06/18 20:20 Blood Pressure 145/82 H 10/06/18 20:20 O2 Sat (%) 97 10/06/18 20:20 O2 Delivery Mode Room Air Allergies/Adverse Reactions: No Known Allergies Allergy (Verified 10/06/18 20:23) Home Medications: Medication Instructions Recorded Multivitamins [Multivitamin (*)] 1 each PO DAILY 07/14/16 Aspirin 81mg (*) 10/06/18 Medical Decision Making - Diagnostics Imaging Results: Imaging Impressions Extremity Venous Study 10/06/18 20:41 Impression: No deep venous thrombosis right leg. Results called and discussed with Klever Hamilton MD at 10/06/2018 22:22. Imaging: Discussed imaging studies w/ at home independent call center agent Radiologist, I viewed and interpreted images myself ED Course/Re-evaluation: CHIEF COMPLAINT: Right leg plane after flying HISTORY OF PRESENT ILLNESS: The patient is a 78 y/o male with a history of afib/flutter complaining of right leg pain. The patient had a long flight 9 days ago and then developed a muscle soreness in his right hamstring. He then developed bruising of his right leg. He became concerned that he developed a DVT due to this pain and bruising, so he decided to present to the emergency department. He denies taking an anticoagulant. No fever, headache, body aches, lightheadedness, chest pain, heart palpitations, shortness of breath, cough, abdominal pain, urinary or bowel complaints, numbness, paresthesias. REVIEW OF SYSTEMS: A comprehensive 10 system review of systems is otherwise negative aside from elements mentioned in the history of present illness and medical decision making. PHYSICAL EXAM: HR, BP, O2 Sat, RR. Temp noted General Appearance: Alert, well hydrated, appropriate, and non-toxic appearing. Head: Atraumatic without scalp tenderness or obvious injury Eyes: Pupils equal, round, reactive to light and accommodation, EOMI, no trauma , no injection. Ears: Clear bilaterally, no perforation, normal landmarks Nose: Atraumatic, no rhinorrhea, clear. Throat: There is no erythema or exudates, no lesions, normal tonsils, mucus membranes moist. Neck: Supple, 2+ carotid upstroke, nontender, no lymphadenopathy. Respiratory: No retractions, no distress, no wheezes, and no accessory muscle use. Lungs are clear to auscultation bilaterally. Cardiovascular: Regular rate and rhythm, no murmurs, rubs, or gallops. Bilateral carotid, radial, dorsalis pedis, and posterior tibial pulses intact. Good capillary refill all extremities. Gastrointestinal: Abdomen is soft, nontender, non-distended, no masses, no rebound, no guarding, no peritoneal signs. Musculoskeletal: Ecchymosis and tenderness of posterior right lower leg from the knee down to the calf. Normal active ROM of all extremities. Neurological: Alert, appropriate, and interactive. The patient has normal DTRs and non-focal cranial nerves, motor, sensory, and cerebellar exam. Skin: No rashes, good turgor, no nodules on palpation. Past medical history: Asthma, Afib/flutter Past surgical history: Denies Family history: Denies Social history: at bedside, retired, lives in [place] DIAGNOSTICS/PROCEDURES/CRITICAL CARE TIME: Right lower extremity US: No deep venous thrombosis right leg DIFFERENTIAL DIAGNOSIS: The differential diagnosis for the patient's leg pain included but was not limited to muscular strain, hypoalbuminemia, congestive heart failure, cor pulmonale, venous stasis, trauma, and DVT. MEDICAL DECISION MAKING: The patient is a 78 y/o male with a history of afib/flutter presenting with right leg pain and bruising after a long flight 9 days ago. Due to his history of afib/flutter he became concerned that he developed a DVT. On exam he has ecchymosis and tenderness of posterior right lower leg from the knee down to the calf. Right lower extremity US ordered. 2221: I spoke to Dr. Clemente, radiologist, regarding patient's right lower extremity US. There is no DVT. I suspect he has a torn or strained hamstring muscle. 2229: Reassessed patient and discussed imaging findings. Return precautions provided; patient is comfortable with this plan. Departure - Departure Disposition: Home, Routine, Self-Care Clinical Impression: Hamstring tear Hamstring strain Qualifiers: Encounter type: initial encounter Laterality: right Qualified Code(s): S76.311A - Strain of muscle, fascia and tendon of the posterior muscle group at thigh level, right thigh, initial encounter Condition: Good Instructions: Muscle Strain (ED), Hamstring Injury (ED) Additional Instructions: 1. Follow-up with your primary doctor within 72 hours. 2. Return to the Emergency Department for fever, chest pain, shortness of breath , increasing pain or other worsening of condition. Referrals: Robel Brown MD [Primary Care Provider] - As per Instructions Report Scribed for: Klever Hamilton Report Scribed by: Una Blackman Date of Report: 10/06/18 Time of Report: 20:39
[2018-10-06 22:38] VITALS: BP 130/73
== END 2018-10-06 22:38 | disposition home or self-care (01) ==
DX: S76.311A Strain of muscle, fascia and tendon of the posterior muscle group at thigh level, right thigh, initial encounter (principal); X58.XXXA Exposure to other specified factors, initial encounter; Y99.9 Unspecified external cause status

== ENCOUNTER 2018-10-23 06:18 | Emergency (ER) | payer OTHER ==
--- NOTE | 2018-10-23 07:22 | EDPHY ---
H & P Stated Complaint: [id number] at PCP on Thu-not improving-on abx Time Seen by Provider: 10/23/18 06:56 HPI/ROS: CHIEF COMPLAINT: Cough HISTORY OF PRESENT ILLNESS: 78-year-old male presents with cough. Onset of nasal congestion and cough 10 days ago. The cough is productive of yellowish phlegm and is associated with a low-grade fever of 100. Saw his primary care physician 3 days ago and placed on Zithromax for possible pneumonia. Continues to have a productive cough. Concerned that the cough is so persistent. Denies shortness of breath or vomiting. REVIEW OF SYSTEMS: complete 10 point ROS reviewed and is negative except for the noted elements in the HPI Source: Patient - Personal History Current Tetanus Diphtheria and Acellular Pertussis (TDAP): Yes - Medical/Surgical History Hx Asthma: Yes Hx Chronic Respiratory Disease: No Hx Diabetes: No Hx Cardiac Disease: Yes Hx Renal Disease: No Hx Cirrhosis: No Hx Alcoholism: No Hx HIV/AIDS: No Hx Splenectomy or Spleen Trauma: No Other PMH: asthma, AFIB flutter. - Social History Smoking Status: Never smoked Additional Social History: - Physical Exam Exam: General Appearance: Alert, pleasant, well-appearing Eyes: Pupils equal and round, no conjunctival pallor ENT, Mouth: Mucous membranes moist Neck: Normal inspection Respiratory: Lungs are clear to auscultation, no wheezing Cardiovascular: Regular rate and rhythm Gastrointestinal: Abdomen is soft and nontender Neurological: A&O, nonfocal, normal gait Skin: Warm and dry Extremities: Normal inspection Psychiatric: Mood and affect normal Constitutional: Initial Vital Signs Temperature (C) 37.2 C 10/23/18 06:21 Heart Rate 80 10/23/18 06:21 Respiratory Rate 16 10/23/18 06:21 Blood Pressure 156/99 H 10/23/18 06:21 O2 Sat (%) 94 10/23/18 06:21 O2 Delivery Mode Room Air Allergies/Adverse Reactions: No Known Allergies Allergy (Verified 10/23/18 06:20) Home Medications: Medication Instructions Recorded Multivitamins [Multivitamin (*)] 1 each PO DAILY 07/14/16 Aspirin 81mg (*) 10/06/18 Azithromycin 10/23/18 Doxycycline Hyclate 100 mg PO BID #20 tablet 10/23/18 Guaifenesin/Codeine Phosphate 10/23/18 Medical Decision Making - Diagnostics Imaging Results: Imaging Impressions Chest X-Ray 10/23/18 07:20 Impression: Trace right pleural effusion; otherwise negative chest.. Chest x-ray independently reviewed by me reveals no infiltrate. ED Course/Re-evaluation: This patient presents with a persistent cough. VS unremarkable including O2 sat 95% RA. Chest x-ray reveals no evidence of pneumonia. He is very concerned that he might have pneumonia and is sure that I can do something to make the cough go away. Long discussion with pt, likely viral etiology. I will send a respiratory swab. He would like to change the antibiotic. A prescription for doxycycline was written. - Data Points Laboratory Results: Laboratory Results 10/23/18 06:51 10/23/18 06:51 10/23/18 10/23/18 06:51 06:51 WBC 10.71 10^3/uL H 10^3/uL (3.80-9.50) RBC 4.65 10^6/uL 10^6/uL (4.40-6.38) Hgb 14.8 g/dL g/dL (13.7-17.5) Hct 43.6 % % (40.0-51.0) MCV 93.8 fL fL (81.5-99.8) MCH 31.8 pg pg (27.9-34.1) MCHC 33.9 g/dL g/dL (32.4-36.7) RDW 13.8 % % (11.5-15.2) Plt Count 259 10^3/uL 10^3/uL (150-400) MPV 9.6 fL fL (8.7-11.7) Neut % (Auto) 82.1 % H % (39.3-74.2) Lymph % (Auto) 10.6 % L % (15.0-45.0) [place] % (Auto) 6.5 % % (4.5-13.0) Eos % (Auto) 0.3 % L % (0.6-7.6) Baso % (Auto) 0.2 % L % (0.3-1.7) Nucleat RBC Rel Count 0.0 % % (0.0-0.2) Absolute Neuts (auto) 8.79 10^3/uL H 10^3/uL (1.70-6.50) Absolute Lymphs (auto) 1.14 10^3/uL 10^3/uL (1.00-3.00) Absolute Monos (auto) 0.70 10^3/uL 10^3/uL (0.30-0.80) Absolute Eos (auto) 0.03 10^3/uL 10^3/uL (0.03-0.40) Absolute Basos (auto) 0.02 10^3/uL 10^3/uL (0.02-0.10) Absolute Nucleated RBC 0.00 10^3/uL 10^3/uL (0-0.01) Immature Gran % 0.3 % % (0.0-1.1) Immature Gran # 0.03 10^3/uL 10^3/uL (0.00-0.10) Sodium 134 mEq/L L mEq/L (135-145) Potassium 4.6 mEq/L mEq/L (3.5-5.2) Chloride 98 mEq/L mEq/L (97-110) Carbon Dioxide 27 mEq/l mEq/l (22-31) Anion Gap 9 mEq/L mEq/L (6-14) BUN 13 mg/dL mg/dL (7-23) Creatinine 0.7 mg/dL mg/dL (0.7-1.3) Estimated GFR > 60 Glucose 107 mg/dL H mg/dL (70-100) Calcium 9.3 mg/dL mg/dL (8.5-10.4) Microbiology Results: MICROBIOLOGY 10/23/18 08:20 Nasal, Sinus - Swab Respiratory Panel (PCR) - Final No Organism Detected By Pcr Departure - Departure Disposition: Home, Routine, Self-Care Clinical Impression: Acute bronchitis Condition: Good Instructions: Doxycycline (By mouth), Acute Bronchitis (ED) Additional Instructions: 1. Drink plenty of fluids. 2. Tylenol 650mg every 4 hr as needed for fever. 3. Consider switching antibiotic to Doxycycline (and stopping Zithromax). 4. Call in 3-4 hours for respiratory swab results. 5. Return for worsening symptoms or any concerns. Referrals: Robel Brown MD [Primary Care Provider] - As per Instructions Prescriptions: Doxycycline Hyclate 100 mg PO BID #20 tablet
[2018-10-23 07:26] LABS: PLATELET COUNT 259 10^3/uL (150-400)
[2018-10-23 08:20] VITALS: BP 119/77
== END 2018-10-23 08:32 | disposition home or self-care (01) ==
DX: J20.9 Acute bronchitis, unspecified (principal)